=== PATIENT | male | born 1935 | race Caucasian/White ===

== ENCOUNTER → 2018-03-12 08:30 | Outpatient (REF) | payer MEDICARE, SELFPAY ==
[2018-03-12 10:19] LABS: ALB/GLOB Ratio 0.8 RATIO (0.9-2.4); AST(SGOT) 12 U/L (15-37); Alanine Aminotransfer ALT/SGPT 12 U/L (16-61); Alkaline Phosphatase 63 U/L (45-117); Anion Gap 8 (5-15); BUN 29 mg/dL (7-18); BUN/Creat Ratio 13.9 RATIO (10-20); Calcium,Total 8.2 mg/dL (8.5-10.1); Chloride 103 mmol/L (98-107); Creatinine, Serum 2.08 mg/dL (0.70-1.30); EST Glomerular Filtration Rate 33 mL/min (>60); Est Glom Filt Rate - Afr Amer 40 mL/min (>60); Globulin 3.9 g/dL (2.2-4.2); Glucose 89 mg/dL (74-106); Potassium 3.8 mmol/L (3.5-5.1); Protein, Total 6.9 g/dL (6.4-8.2); Sodium Level 142 mmol/L (136-145)
[2018-03-12 10:23] LABS: Absolute Lymphocyte Count 1.26 X10^3/ul (0.83-4.51); Absolute Neutrophil Count 4.5 X10^3/uL (2.0-7.7); Basophil# 0.01 X10^3/uL; Basophil% 0.2 % (0-1); Eosinophil# 0.26 X10^3/uL; Hematocrit 31.1 % (40-54); Hemoglobin 10.2 g/dl (13.0-16.5); Lymphocyte # 1.26 X10^3/ul (4.0); Lymphocyte % 19.4 % (19-41); Mean Corp Hgb Conc 32.8 g/gl (32-36); Mean Corpuscular Hgb 29.5 pg (27.0-32.0); Mean Corpuscular Volume 89.9 fL (80-94); Monocyte# 0.52 X10^3/uL; Neutrophil # 4.46 X10^3/uL (2.7-7.7); Neutrophil % 68.4 % (47-70); Platelet Count 112 K/mm3 (150-450); RBC Distribution Width CV 15.5 % (11.6-14.6); RBC Distribution Width SD 51.1 fl (35.1-43.9); Red Blood Count 3.46 M/mm3 (4.6-6.2); White Blood Count 6.5 K/mm3 (4.4-11.0)
[2018-03-12 10:26] LABS: POSITIVE COUNT NO; POSITIVE DIFFERENTIAL NO; POSITIVE MORPHOLOGY NO
[2018-03-13 10:12] LABS: Vitamin D,25 Hydroxy 40.8 ng/mL (29.95-100.01)
== END ==
LOC: OLS.AVEB 08:30
PROVIDERS: Visit Provider Family Medicine
DX: E78.5 Hyperlipidemia, unspecified (principal); D69.6 Thrombocytopenia, unspecified; N18.4 Chronic kidney disease, stage 4 (severe); E55.9 Vitamin D deficiency, unspecified
CPT/HCPCS: 36415; 80053; 82306; 85025

== ENCOUNTER → 2018-03-13 05:00 | Outpatient (REF) | payer MEDICARE, SELFPAY ==
[2018-03-13 09:12] LABS: Cholesterol 93 mg/dL (200); High Density Lipoprotein 44 mg/dL; Triglycerides 40 mg/dL; Very Low Density Lipoprotein 8 mg/dL (5-40)
== END ==
LOC: OLS.AVEB 05:00
PROVIDERS: Visit Provider Family Medicine
DX: E78.5 Hyperlipidemia, unspecified (principal)
CPT/HCPCS: 36415; 80061

== ENCOUNTER → 2018-03-31 05:00 | Outpatient (REF) | payer MEDICARE, SELFPAY ==
[2018-03-31 09:15] LABS: Anion Gap 10 (5-15); BUN 30 mg/dL (7-18); BUN/Creat Ratio 13.3 RATIO (10-20); Calcium,Total 8.2 mg/dL (8.5-10.1); Chloride 102 mmol/L (98-107); Creatinine, Serum 2.26 mg/dL (0.70-1.30); EST Glomerular Filtration Rate 30 mL/min (>60); Est Glom Filt Rate - Afr Amer 36 mL/min (>60); Glucose 88 mg/dL (74-106); Potassium 4.2 mmol/L (3.5-5.1); Sodium Level 141 mmol/L (136-145)
[2018-03-31 09:17] LABS: Absolute Lymphocyte Count 1.69 X10^3/ul (0.83-4.51); Absolute Neutrophil Count 4.6 X10^3/uL (2.0-7.7); Basophil# 0.02 X10^3/uL; Basophil% 0.3 % (0-1); Eosinophils% 4.2 % (0-5); Hematocrit 31.5 % (40-54); Lymphocyte # 1.69 X10^3/ul (4.0); Lymphocyte % 23.6 % (19-41); Mean Corp Hgb Conc 31.7 g/gl (32-36); Mean Corpuscular Hgb 29.2 pg (27.0-32.0); Mean Corpuscular Volume 91.8 fL (80-94); Mean Platelet Vol. 9.8 fl (6.2-12.0); Monocyte# 0.56 X10^3/uL; Monocyte% 7.8 % (0-10); Neutrophil # 4.59 X10^3/uL (2.7-7.7); POSITIVE COUNT NO; POSITIVE DIFFERENTIAL NO; POSITIVE MORPHOLOGY NO; Platelet Count 133 K/mm3 (150-450); RBC Distribution Width CV 15.3 % (11.6-14.6); RBC Distribution Width SD 51.8 fl (35.1-43.9); Red Blood Count 3.43 M/mm3 (4.6-6.2); White Blood Count 7.2 K/mm3 (4.4-11.0)
== END ==
LOC: OLS.AVEB 05:00
PROVIDERS: Visit Provider Family Medicine
DX: D69.6 Thrombocytopenia, unspecified (principal); N18.9 Chronic kidney disease, unspecified
CPT/HCPCS: 36415; 80048; 85025

== ENCOUNTER → 2018-04-06 04:00 | Outpatient (REF) | payer MEDICARE, SELFPAY ==
[2018-04-06 08:14] LABS: Absolute Lymphocyte Count 1.73 X10^3/ul (0.83-4.51); Absolute Neutrophil Count 4.9 X10^3/uL (2.0-7.7); Basophil# 0.02 X10^3/uL; Basophil% 0.3 % (0-1); Eosinophil# 0.23 X10^3/uL; Eosinophils% 3.1 % (0-5); Hematocrit 31.7 % (40-54); Hemoglobin 10.4 g/dl (13.0-16.5); Lymphocyte # 1.73 X10^3/ul (4.0); Lymphocyte % 22.9 % (19-41); Mean Corp Hgb Conc 32.8 g/gl (32-36); Mean Corpuscular Volume 91.4 fL (80-94); Mean Platelet Vol. 10.3 fl (6.2-12.0); Monocyte# 0.63 X10^3/uL; Monocyte% 8.4 % (0-10); Neutrophil # 4.92 X10^3/uL (2.7-7.7); Neutrophil % 65.2 % (47-70); Platelet Count 146 K/mm3 (150-450); RBC Distribution Width CV 15.2 % (11.6-14.6); RBC Distribution Width SD 49.4 fl (35.1-43.9); Red Blood Count 3.47 M/mm3 (4.6-6.2); White Blood Count 7.5 K/mm3 (4.4-11.0)
[2018-04-06 08:17] LABS: POSITIVE COUNT NO; POSITIVE DIFFERENTIAL NO; POSITIVE MORPHOLOGY NO
[2018-04-06 08:25] LABS: Anion Gap 7 (5-15); BUN 39 mg/dL (7-18); BUN/Creat Ratio 20.3 RATIO (10-20); Calcium,Total 8.3 mg/dL (8.5-10.1); Chloride 102 mmol/L (98-107); Creatinine, Serum 1.92 mg/dL (0.70-1.30); EST Glomerular Filtration Rate 36 mL/min (>60); Est Glom Filt Rate - Afr Amer 43 mL/min (>60); Glucose 87 mg/dL (74-106); Potassium 4.2 mmol/L (3.5-5.1); Sodium Level 138 mmol/L (136-145)
== END ==
LOC: OLS.AVEB 04:00
PROVIDERS: Visit Provider Family Medicine
DX: D64.9 Anemia, unspecified (principal)
CPT/HCPCS: 36415; 80048; 85025

== ENCOUNTER → 2018-04-28 05:00 | Outpatient (REF) | payer MEDICARE, SELFPAY ==
[2018-04-28 09:50] LABS: Absolute Lymphocyte Count 1.45 X10^3/ul (0.83-4.51); Absolute Neutrophil Count 4.4 X10^3/uL (2.0-7.7); Basophil# 0.02 X10^3/uL; Basophil% 0.3 % (0-1); Eosinophil# 0.35 X10^3/uL; Eosinophils% 5.2 % (0-5); Hematocrit 30.6 % (40-54); Hemoglobin 9.9 g/dl (13.0-16.5); Lymphocyte # 1.45 X10^3/ul (4.0); Lymphocyte % 21.5 % (19-41); Mean Corp Hgb Conc 32.4 g/gl (32-36); Mean Corpuscular Hgb 29.2 pg (27.0-32.0); Mean Corpuscular Volume 90.3 fL (80-94); Mean Platelet Vol. 9.8 fl (6.2-12.0); Monocyte# 0.56 X10^3/uL; Monocyte% 8.3 % (0-10); Neutrophil # 4.35 X10^3/uL (2.7-7.7); Neutrophil % 64.4 % (47-70); Platelet Count 117 K/mm3 (150-450); RBC Distribution Width CV 15.4 % (11.6-14.6); RBC Distribution Width SD 50.7 fl (35.1-43.9); Red Blood Count 3.39 M/mm3 (4.6-6.2); White Blood Count 6.8 K/mm3 (4.4-11.0)
[2018-04-28 09:51] LABS: POSITIVE COUNT NO; POSITIVE DIFFERENTIAL NO; POSITIVE MORPHOLOGY NO
[2018-04-28 09:57] LABS: Anion Gap 8 (5-15); BUN 29 mg/dL (7-18); BUN/Creat Ratio 13.6 RATIO (10-20); Calcium,Total 8.2 mg/dL (8.5-10.1); Chloride 100 mmol/L (98-107); Creatinine, Serum 2.13 mg/dL (0.70-1.30); EST Glomerular Filtration Rate 32 mL/min (>60); Est Glom Filt Rate - Afr Amer 39 mL/min (>60); Glucose 80 mg/dL (74-106); Sodium Level 137 mmol/L (136-145)
== END ==
LOC: OLS.AVEB 05:00
PROVIDERS: Visit Provider Family Medicine
DX: N18.4 Chronic kidney disease, stage 4 (severe) (principal); D69.6 Thrombocytopenia, unspecified
CPT/HCPCS: 36415; 80048; 85025

== ENCOUNTER → 2018-05-04 04:00 | Outpatient (REF) | payer MEDICARE, SELFPAY ==
[2018-05-04 09:24] LABS: Absolute Lymphocyte Count 1.47 X10^3/ul (0.83-4.51); Absolute Neutrophil Count 4.7 X10^3/uL (2.0-7.7); Basophil# 0.01 X10^3/uL; Basophil% 0.1 % (0-1); Eosinophil# 0.23 X10^3/uL; Eosinophils% 3.3 % (0-5); Hematocrit 31.4 % (40-54); Lymphocyte # 1.47 X10^3/ul (4.0); Lymphocyte % 21.1 % (19-41); Mean Corp Hgb Conc 31.8 g/gl (32-36); Mean Platelet Vol. 10.1 fl (6.2-12.0); Monocyte# 0.57 X10^3/uL; Monocyte% 8.2 % (0-10); Neutrophil # 4.69 X10^3/uL (2.7-7.7); Neutrophil % 67.2 % (47-70); Platelet Count 125 K/mm3 (150-450); RBC Distribution Width CV 15.3 % (11.6-14.6); RBC Distribution Width SD 50.8 fl (35.1-43.9); Red Blood Count 3.45 M/mm3 (4.6-6.2)
[2018-05-04 09:27] LABS: POSITIVE COUNT NO; POSITIVE DIFFERENTIAL NO; POSITIVE MORPHOLOGY NO
[2018-05-04 09:30] LABS: Anion Gap 4 (5-15); BUN 36 mg/dL (7-18); BUN/Creat Ratio 18.9 RATIO (10-20); Calcium,Total 8.5 mg/dL (8.5-10.1); Chloride 99 mmol/L (98-107); EST Glomerular Filtration Rate 36 mL/min (>60); Est Glom Filt Rate - Afr Amer 44 mL/min (>60); Glucose 86 mg/dL (74-106); Potassium 4.5 mmol/L (3.5-5.1); Sodium Level 136 mmol/L (136-145)
== END ==
LOC: OLS.AVEB 04:00
PROVIDERS: Visit Provider Family Medicine
DX: N18.4 Chronic kidney disease, stage 4 (severe) (principal); D69.6 Thrombocytopenia, unspecified
CPT/HCPCS: 36415; 80048; 85025

== ENCOUNTER → 2018-05-26 06:00 | Outpatient (REF) | payer MEDICARE, SELFPAY ==
[2018-05-26 08:02] LABS: Anion Gap 7 (5-15); BUN 27 mg/dL (7-18); BUN/Creat Ratio 13.5 RATIO (10-20); Calcium,Total 7.9 mg/dL (8.5-10.1); Chloride 101 mmol/L (98-107); EST Glomerular Filtration Rate 34 mL/min (>60); Est Glom Filt Rate - Afr Amer 41 mL/min (>60); Glucose 76 mg/dL (74-106); Potassium 4.2 mmol/L (3.5-5.1); Sodium Level 137 mmol/L (136-145)
[2018-05-26 08:06] LABS: Absolute Lymphocyte Count 1.69 X10^3/ul (0.83-4.51); Absolute Neutrophil Count 5.2 X10^3/uL (2.0-7.7); Basophil# 0.02 X10^3/uL; Basophil% 0.3 % (0-1); Eosinophil# 0.29 X10^3/uL; Eosinophils% 3.8 % (0-5); Hematocrit 33.2 % (40-54); Hemoglobin 10.7 g/dl (13.0-16.5); Lymphocyte # 1.69 X10^3/ul (4.0); Lymphocyte % 21.9 % (19-41); Mean Corp Hgb Conc 32.2 g/gl (32-36); Mean Corpuscular Hgb 29.4 pg (27.0-32.0); Mean Corpuscular Volume 91.2 fL (80-94); Mean Platelet Vol. 9.5 fl (6.2-12.0); Monocyte% 6.5 % (0-10); Neutrophil # 5.19 X10^3/uL (2.7-7.7); Neutrophil % 67.4 % (47-70); Platelet Count 117 K/mm3 (150-450); RBC Distribution Width CV 15.1 % (11.6-14.6); RBC Distribution Width SD 50.7 fl (35.1-43.9); Red Blood Count 3.64 M/mm3 (4.6-6.2); White Blood Count 7.7 K/mm3 (4.4-11.0)
[2018-05-26 08:12] LABS: POSITIVE COUNT NO; POSITIVE DIFFERENTIAL NO; POSITIVE MORPHOLOGY NO
== END ==
LOC: OLS.AVEB 06:00
PROVIDERS: Visit Provider Family Medicine
DX: I10 Essential (primary) hypertension (principal); R53.83 Other fatigue
CPT/HCPCS: 36415; 80048; 85025

== ENCOUNTER → 2018-06-01 05:00 | Outpatient (REF) | payer MEDICARE, SELFPAY ==
[2018-06-01 07:57] LABS: Absolute Lymphocyte Count 1.37 X10^3/ul (0.83-4.51); Absolute Neutrophil Count 4.5 X10^3/uL (2.0-7.7); Basophil# 0.02 X10^3/uL; Basophil% 0.3 % (0-1); Eosinophil# 0.26 X10^3/uL; Eosinophils% 3.9 % (0-5); Hematocrit 31.5 % (40-54); Hemoglobin 10.2 g/dl (13.0-16.5); Lymphocyte # 1.37 X10^3/ul (4.0); Lymphocyte % 20.5 % (19-41); Mean Corp Hgb Conc 32.4 g/gl (32-36); Mean Corpuscular Hgb 30.1 pg (27.0-32.0); Mean Corpuscular Volume 92.9 fL (80-94); Mean Platelet Vol. 10.4 fl (6.2-12.0); Monocyte# 0.54 X10^3/uL; Monocyte% 8.1 % (0-10); Neutrophil # 4.47 X10^3/uL (2.7-7.7); Neutrophil % 66.9 % (47-70); Platelet Count 126 K/mm3 (150-450); RBC Distribution Width CV 14.9 % (11.6-14.6); RBC Distribution Width SD 48.8 fl (35.1-43.9); Red Blood Count 3.39 M/mm3 (4.6-6.2); White Blood Count 6.7 K/mm3 (4.4-11.0)
[2018-06-01 07:58] LABS: Anion Gap 8 (5-15); BUN 29 mg/dL (7-18); BUN/Creat Ratio 14.3 RATIO (10-20); Calcium,Total 8.1 mg/dL (8.5-10.1); Chloride 101 mmol/L (98-107); Creatinine, Serum 2.03 mg/dL (0.70-1.30); EST Glomerular Filtration Rate 34 mL/min (>60); Est Glom Filt Rate - Afr Amer 41 mL/min (>60); Glucose 86 mg/dL (74-106); Potassium 4.1 mmol/L (3.5-5.1); Sodium Level 138 mmol/L (136-145)
[2018-06-01 08:08] LABS: POSITIVE COUNT NO; POSITIVE DIFFERENTIAL NO; POSITIVE MORPHOLOGY NO
== END ==
LOC: OLS.AVEB 05:00
PROVIDERS: Visit Provider Family Medicine
DX: D64.9 Anemia, unspecified (principal)
CPT/HCPCS: 36415; 80048; 85025

== ENCOUNTER → 2018-06-23 05:00 | Outpatient (REF) | payer MEDICARE, MEDICAID, SELFPAY ==
[2018-06-23 08:01] LABS: Absolute Lymphocyte Count 1.46 X10^3/ul (0.83-4.51); Absolute Neutrophil Count 5.1 X10^3/uL (2.0-7.7); Basophil# 0.01 X10^3/uL; Basophil% 0.1 % (0-1); Eosinophil# 0.23 X10^3/uL; Eosinophils% 3.1 % (0-5); Hematocrit 32.8 % (40-54); Hemoglobin 10.7 g/dl (13.0-16.5); Lymphocyte # 1.46 X10^3/ul (4.0); Lymphocyte % 19.7 % (19-41); Mean Corp Hgb Conc 32.6 g/gl (32-36); Mean Corpuscular Hgb 29.5 pg (27.0-32.0); Mean Corpuscular Volume 90.4 fL (80-94); Mean Platelet Vol. 9.7 fl (6.2-12.0); Monocyte# 0.58 X10^3/uL; Monocyte% 7.8 % (0-10); Neutrophil # 5.11 X10^3/uL (2.7-7.7); Platelet Count 127 K/mm3 (150-450); RBC Distribution Width CV 15.2 % (11.6-14.6); RBC Distribution Width SD 50.1 fl (35.1-43.9); Red Blood Count 3.63 M/mm3 (4.6-6.2); White Blood Count 7.4 K/mm3 (4.4-11.0)
[2018-06-23 08:02] LABS: POSITIVE COUNT NO; POSITIVE DIFFERENTIAL NO; POSITIVE MORPHOLOGY NO
[2018-06-23 08:10] LABS: Anion Gap 10 (5-15); BUN 25 mg/dL (7-18); BUN/Creat Ratio 12.8 RATIO (10-20); Calcium,Total 8.1 mg/dL (8.5-10.1); Chloride 101 mmol/L (98-107); Creatinine, Serum 1.95 mg/dL (0.70-1.30); EST Glomerular Filtration Rate 35 mL/min (>60); Est Glom Filt Rate - Afr Amer 43 mL/min (>60); Glucose 82 mg/dL (74-106); Potassium 3.8 mmol/L (3.5-5.1); Sodium Level 140 mmol/L (136-145)
== END ==
LOC: OLS.AVEB 05:00
PROVIDERS: Visit Provider Family Medicine
DX: S32.039A Unspecified fracture of third lumbar vertebra, initial encounter for closed fracture (principal); X58.XXXA Exposure to other specified factors, initial encounter; Y93.9 Activity, unspecified; Y92.9 Unspecified place or not applicable
CPT/HCPCS: 36415; 80048; 85025

== ENCOUNTER → 2018-06-26 05:00 | Outpatient (REF) | payer MEDICARE, MEDICAID, SELFPAY ==
[2018-06-26 08:33] LABS: Anion Gap 8 (5-15); BUN 26 mg/dL (7-18); Calcium,Total 8.1 mg/dL (8.5-10.1); Chloride 101 mmol/L (98-107); Creatinine, Serum 2.37 mg/dL (0.70-1.30); EST Glomerular Filtration Rate 28 mL/min (>60); Est Glom Filt Rate - Afr Amer 34 mL/min (>60); Glucose 84 mg/dL (74-106); Potassium 4.4 mmol/L (3.5-5.1); Sodium Level 139 mmol/L (136-145)
[2018-06-26 08:50] LABS: Absolute Lymphocyte Count 1.18 X10^3/ul (0.83-4.51); Basophil# 0.01 X10^3/uL; Basophil% 0.1 % (0-1); Eosinophils% 2.9 % (0-5); Hematocrit 33.6 % (40-54); Hemoglobin 10.7 g/dl (13.0-16.5); Lymphocyte # 1.18 X10^3/ul (4.0); Mean Corp Hgb Conc 31.8 g/gl (32-36); Mean Corpuscular Volume 91.1 fL (80-94); Monocyte# 0.55 X10^3/uL; Monocyte% 7.9 % (0-10); Platelet Count 132 K/mm3 (150-450); RBC Distribution Width CV 15.1 % (11.6-14.6); RBC Distribution Width SD 50.8 fl (35.1-43.9); Red Blood Count 3.69 M/mm3 (4.6-6.2)
[2018-06-26 08:51] LABS: POSITIVE COUNT NO; POSITIVE DIFFERENTIAL NO; POSITIVE MORPHOLOGY NO
== END ==
LOC: OLS.AVEB 05:00
PROVIDERS: Visit Provider Family Medicine
DX: N18.4 Chronic kidney disease, stage 4 (severe) (principal); D69.6 Thrombocytopenia, unspecified
CPT/HCPCS: 36415; 80048; 85025

== ENCOUNTER → 2018-07-07 13:10 | Outpatient (REF) | payer MEDICARE, MEDICAID, SELFPAY ==
[2018-07-07 14:57] LABS: Bacteria 0 SEEN /hpf (None Seen); Mucous, Urine 0 SEEN /hpf (<or=2+); Red Blood Cells-Urine 0 SEEN /hpf (0-5); Squamous Epithelial Cells - UA 0 SEEN /hpf (0-5); White Blood Cells 0 SEEN /hpf (0-5)
[2018-07-07 15:08] LABS: Color, Urine Yellow (Yellow); Glucose, Dipstick Normal (Normal); Ketone-Dipstick Negative (Negative); Leukocyte Esterase-Dipstick Negative /ul (Negative); Nitrite-Dipstick Negative (Negative); Occult Blood-Urine Negative /ul (Negative); Protein-Dipstick 30 mg/dl (Negative); Urine Bilirubin Dipstick Negative (Negative); Urine Clarity Clear (Clear); Urine Urobilinogen Normal (Normal)
--- OUTSIDE RECORDS SUMMARY | 2018-09-02 07:04 | XMS RPT_ITS ---
:1935 Author Organization OHIP Support Name Relationship Address Phone María Cortez Unavailable [address] + [place] [address] R Unavailable Unavailable Unavailable Bone, María Unavailable [address] + [place] [address] R Unavailable Unavailable Unavailable Bone, María Unavailable [address] + [place] [address] R Unavailable Unavailable Unavailable Bone, María Unavailable [address] + [place] [address] R Unavailable Unavailable Unavailable Bone, María Unavailable [address] + [place] [address] R Unavailable Unavailable Unavailable Bone, María Unavailable [address] + [place] [address] R Unavailable Unavailable Unavailable Bone, María Unavailable [address] + [place] [address] R Unavailable Unavailable Unavailable Bone, María Unavailable [address] + [place] [address] R Unavailable Unavailable Unavailable Bone, María Unavailable [address] + [place] [address] R Unavailable Unavailable Unavailable Bone, María Unavailable [address] + [place] [address] R Unavailable Unavailable Unavailable Bone, María Unavailable [address] + [place] [address] R Unavailable Unavailable Unavailable Bone, María Unavailable [address] + [place] [address] R Unavailable Unavailable Unavailable Bone, María Unavailable [address] + [place] [address] R Unavailable Unavailable Unavailable Care Team Providers Name Role Phone Kelledana, Catalina Attending Unavailable Ciesa, Catalina Referring Unavailable Kelleeskymberly, Catalina Consulting Unavailable Black, Davi Attending Unavailable Black, Davi Attending Unavailable Black, Daiv Attending Unavailable Black, Davi Attending Unavailable Black, Davi Attending Unavailable Black, Davi Attending Unavailable Black, Davi Attending Unavailable Black, Davi Attending Unavailable Black, Davi Attending Unavailable Black, Davi Attending Unavailable Black, Davi Attending Unavailable Black, Davi Attending Unavailable Black, Davi Attending Unavailable PROBLEMS PROBLEMS DATE TYPE CONDITION / CODE ATTENDING STATUS SOURCE 07/15/2018 Unknown 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, Community stage 4 (severe) / Hospital N18.4(ICD-10) Repository 07/15/2018 Unknown D69.6 - [facility] estes Active [facility] Thrombocytopenia, Community unspecified / Hospital D69.6(ICD-10) Repository 07/10/2018 Unknown S32.038A - Other [facility] estes Active [facility] fracture of third Community lumbar vertebra, Hospital initial encounter Repository for closed fracture / S32.038A(ICD-10) 06/23/2018 Unknown D64.9 - Anemia, [facility] estes Active [facility] unspecified / Community D64.9(ICD-10) Hospital Repository 06/19/2018 Unknown R53.83 - Other [facility] estes Active [facility] fatigue / Community R53.83(ICD-10) Hospital Repository 06/19/2018 Unknown I10 - Essential [facility] estes Active [facility] (primary) Community hypertension / Hospital I10(ICD-10) Repository 05/08/2018 Unknown E78.5 - [facility]i estes Active [facility] Hyperlipidemia, Community unspecified / Hospital E78.5(ICD-10) Repository PROCEDURES PROCEDURES No Procedure Records FoundRESULTS RESULTS CBC W/DIFF, AUTOMATED Collected: 07/27/2018 Status: F Source: JERRY 8:30 AM [facility] REPOSITORY TYPE CODE TESTS RESULT OUT OF RANGE REFERENCE UNITS LAB L100.1000 4.4-11.0 K/mm3 Normal WBC 6.0 LAB L100.1200 4.6-6.2 M/mm3 Low RBC 3.55 LAB L100.1300 13.0-16.5 g/dl Low HGB 10.3 LAB L100.1400 40-54 % Low HCT 31.8 LAB L100.1500 80-94 fL Normal MCV 89.6 LAB L100.1600 27.0-32.0 pg Normal MCH 29.0 LAB L100.1700 32-36 g/gl Normal MCHC 32.4 LAB L100.1810 11.6-14.6 % High RDW CV 15.1 LAB L100.1820 35.1-43.9 fl High RDW SD 49.5 LAB L100.1900 150-450 K/mm3 Low PLT 118 LAB L100.2000 6.2-12.0 fl Normal MPV 9.9 LAB L100.2100 47-70 % Normal NEUT% 64.2 LAB L100.2200 19-41 % Normal LY% 22.9 LAB L100.2300 0-10 % Normal MONO% 8.3 LAB L100.2400 0-5 % Normal EO% 4.2 LAB L100.2500 0-1 % Normal BASO% 0.2 LAB L100.2550 0.0-0.9 % Normal IM GRAN % 0.200 Result Comment: IG% - Immature Granulocytes (promyelocytes, myelocytes and metamyelocytes) > 1% indicates that a LEFT SHIFT is Present. LAB L100.2620 2.0-7.7 X10 3/uL Normal Absolute Neut 3.9 LAB L100.2720 0.83-4.51 X10 3/ul Normal Absolute Lymph 1.38 Performed By: #### L100.0100 #### [facility]. [place], [place], [address] RENAL PROFILE Collected: 07/27/2018 Status: F Source: QUINTER 8:30 AM [facility] REPOSITORY TYPE CODE TESTS RESULT OUT OF RANGE REFERENCE UNITS LAB L501.0100 74-106 mg/dL Normal GLU 78 Result Comment: Please note revised GLUCOSE reference range effective 2017. LAB L501.1000 7-18 mg/dL High BUN 28 LAB L501.1100 0.70-1.30 mg/dL High CREAT,SERUM 1.82 Result Comment: The validity of the calculated GFR AND GFRAA in patients over 70 years has not been determined. Clinical correlation is essential. LAB L501.1110 >60 mL/min Low EST GFR 38 Result Comment: Non- GFR Calc LAB L501.1115 >60 mL/min Low EST GFR - AA 46 Result Comment: GFR Calc LAB L501.1300 10-20 RATIO Normal BUN/CRE 15.4 LAB L501.1800 3.2-5.0 g/dL Low ALB 3.0 LAB L501.2200 8.5-10.1 mg/dL Low CA 8.0 LAB L501.2300 2.5-4.9 mg/dL Normal PHOS 2.9 LAB L501.5300 136-145 mmol/L NA Normal 137 LAB L501.5600 3.5-5.1 mmol/L K Normal 4.0 LAB L501.5900 98-107 mmol/L CL Normal 101 LAB L501.6100 21.0-32.0 mmol/L Normal CO2 29.0 Performed By: #### L500.3600 #### [facility] [address] [place], [address] PTHIN Collected: 07/27/2018 Status: F Source: QUINTER 8:30 AM [facility] REPOSITORY TYPE CODE TESTS RESULT OUT OF RANGE REFERENCE UNITS LAB L509.1000 18.4-80.1 pg/mL Normal PTHIN 48.3 Performed By: #### L509.1000 #### [facility] [address] [place], [address] CBC W/DIFF, AUTOMATED Collected: 07/21/2018 Status: F Source: QUINTER 6:30 AM [facility] REPOSITORY Order Comment: 102 TYPE CODE TESTS RESULT OUT OF RANGE REFERENCE UNITS LAB L100.1000 4.4-11.0 K/mm3 Normal WBC 6.4 LAB L100.1200 4.6-6.2 M/mm3 Low RBC 3.35 LAB L100.1300 13.0-16.5 g/dl Low HGB 9.9 LAB L100.1400 40-54 % Low HCT 30.6 LAB L100.1500 80-94 fL Normal MCV 91.3 LAB L100.1600 27.0-32.0 pg Normal MCH 29.6 LAB L100.1700 32-36 g/gl Normal MCHC 32.4 LAB L100.1810 11.6-14.6 % High RDW CV 14.9 LAB L100.1820 35.1-43.9 fl High RDW SD 48.5 LAB L100.1900 150-450 K/mm3 Normal PLT 154 LAB L100.2000 6.2-12.0 fl Normal MPV 10.4 LAB L100.2100 47-70 % Normal NEUT% 62.0 LAB L100.2200 19-41 % Normal LY% 23.3 LAB L100.2300 0-10 % Normal MONO% 9.8 LAB L100.2400 0-5 % Normal EO% 4.5 LAB L100.2500 0-1 % Normal BASO% 0.2 LAB L100.2550 0.0-0.9 % Normal IM GRAN % 0.200 Result Comment: IG% - Immature Granulocytes (promyelocytes, myelocytes and metamyelocytes) > 1% indicates that a LEFT SHIFT is Present. LAB L100.2620 2.0-7.7 X10 3/uL Normal Absolute Neut 4.0 LAB L100.2720 0.83-4.51 X10 3/ul Normal Absolute Lymph 1.50 Performed By: #### L100.0100 #### [facility] [address] [place], [address] BASIC METABOLIC Collected: 07/21/2018 Status: F Source: QUINTER PROFILE ([facility]) 6:30 AM [facility] REPOSITORY Order Comment: 102 TYPE CODE TESTS RESULT OUT OF RANGE REFERENCE UNITS LAB L501.0100 74-106 mg/dL Low GLU 73 Result Comment: Please note revised GLUCOSE reference range effective 2017. LAB L501.1000 7-18 mg/dL High BUN 27 LAB L501.1100 0.70-1.30 mg/dL High CREAT,SERUM 1.90 Result Comment: The validity of the calculated GFR AND GFRAA in patients over 70 years has not been determined. Clinical correlation is essential. LAB L501.1110 >60 mL/min Low EST GFR 36 Result Comment: Non- GFR Calc LAB L501.1115 >60 mL/min Low EST GFR - AA 44 Result Comment: GFR Calc LAB L501.1300 10-20 RATIO Normal BUN/CRE 14.2 LAB L501.2200 8.5-10.1 mg/dL Low CA 7.8 LAB L501.5300 136-145 mmol/L NA Normal 137 LAB L501.5600 3.5-5.1 mmol/L K Normal 3.9 LAB L501.5900 98-107 mmol/L CL Normal 100 LAB L501.6100 21.0-32.0 mmol/L Normal CO2 32.0 LAB L501.6200 5-15 Normal GAP 5 Performed By: #### L500.2500 #### [facility] [address] [place], [place], [address] URINALYSIS, COMPLETE Collected: 07/07/2018 Status: F Source: JERRY 1:10 PM [facility] REPOSITORY Order Comment: How was Urine Obtained? CLEAN CATCH TYPE CODE TESTS RESULT OUT OF RANGE REFERENCE UNITS LAB L400.3000 Yellow COLOR Normal Yellow LAB L400.3050 Clear Normal CLARITY Clear LAB L400.3200 Normal mg/dl Normal GLUCOSE, UR Normal LAB L400.3300 Negative mg/dL Normal BILIRUBIN URINE Negative LAB L400.3400 Negative mg/dl Normal KETONE UR Negative LAB L400.3465 1.002-1.030 Normal SP.GR. DIPSTX 1.010 LAB L400.3550 5.0 - 8.0 pH UR Normal 6.0 LAB L400.3600 Negative mg/dl High PROT 30 DIPSTX LAB L400.3700 Normal mg/dl Normal UROBILI Normal LAB L400.3750 Negative Normal NITRITE UR Negative LAB L400.3780 Negative /ul Normal OCCULT BLOOD-UR Negative LAB L400.3800 Negative /ul LEUK Normal ESTERASE Negative LAB L400.4050 0-5 /hpf WBC 0 Normal SEEN LAB L400.4100 0-5 /hpf 0 Normal RBC-UA SEEN LAB L400.4150 0-5 /hpf SQUAM 0 Normal EPI SEEN LAB L400.4300 None Seen /hpf 0 Normal BACTERIA SEEN LAB L400.4350 <or=2+ /hpf 0 Normal MUCUS, URINE SEEN Performed By: #### L400.0001 #### [facility] [address] [place], [place], [address] BASIC METABOLIC Collected: 06/26/2018 Status: F Source: JERRY PROFILE (BMP) 6:05 AM [facility] REPOSITORY Order Comment: 102 TYPE CODE TESTS RESULT OUT OF RANGE REFERENCE UNITS LAB L501.0100 74-106 mg/dL Normal GLU 84 Result Comment: Please note revised GLUCOSE reference range effective 2017. LAB L501.1000 7-18 mg/dL High BUN 26 LAB L501.1100 0.70-1.30 mg/dL High CREAT,SERUM 2.37 Result Comment: The validity of the calculated GFR AND GFRAA in patients over 70 years has not been determined. Clinical correlation is essential. LAB L501.1110 >60 mL/min Low EST GFR 28 Result Comment: Non- GFR Calc LAB L501.1115 >60 mL/min Low EST GFR - AA 34 Result Comment: GFR Calc LAB L501.1300 10-20 RATIO Normal BUN/CRE 11.0 LAB L501.2200 8.5-10.1 mg/dL Low CA 8.1 LAB L501.5300 136-145 mmol/L NA Normal 139 LAB L501.5600 3.5-5.1 mmol/L K Normal 4.4 LAB L501.5900 98-107 mmol/L CL Normal 101 LAB L501.6100 21.0-32.0 mmol/L Normal CO2 30.0 LAB L501.6200 5-15 Normal GAP 8 Performed By: #### L500.2500 #### [facility] [address] [place], [place], [address] CBC W/DIFF, AUTOMATED Collected: 06/26/2018 Status: F Source: QUINTER 6:05 AM [facility] REPOSITORY Order Comment: 102 TYPE CODE TESTS RESULT OUT OF RANGE REFERENCE UNITS LAB L100.1000 4.4-11.0 K/mm3 Normal WBC 7.0 LAB L100.1200 4.6-6.2 M/mm3 Low RBC 3.69 LAB L100.1300 13.0-16.5 g/dl Low HGB 10.7 LAB L100.1400 40-54 % Low HCT 33.6 LAB L100.1500 80-94 fL Normal MCV 91.1 LAB L100.1600 27.0-32.0 pg Normal MCH 29.0 LAB L100.1700 32-36 g/gl Low MCHC 31.8 LAB L100.1810 11.6-14.6 % High RDW CV 15.1 LAB L100.1820 35.1-43.9 fl High RDW SD 50.8 LAB L100.1900 150-450 K/mm3 Low PLT 132 LAB L100.2000 6.2-12.0 fl Normal MPV 10.0 LAB L100.2100 47-70 % High NEUT% 72.0 LAB L100.2200 19-41 % Low LY% 17.0 LAB L100.2300 0-10 % Normal MONO% 7.9 LAB L100.2400 0-5 % Normal EO% 2.9 LAB L100.2500 0-1 % Normal BASO% 0.1 LAB L100.2550 0.0-0.9 % Normal IM GRAN % 0.100 Result Comment: IG% - Immature Granulocytes (promyelocytes, myelocytes and metamyelocytes) > 1% indicates that a LEFT SHIFT is Present. LAB L100.2620 2.0-7.7 X10 3/uL Normal Absolute Neut 5.0 LAB L100.2720 0.83-4.51 X10 3/ul Normal Absolute Lymph 1.18 Performed By: #### L100.0100 #### [facility] [address] [place], [address] CBC W/DIFF, AUTOMATED Collected: 06/23/2018 Status: F Source: QUINTER 6:00 AM [facility] REPOSITORY Order Comment: 102 TYPE CODE TESTS RESULT OUT OF RANGE REFERENCE UNITS LAB L100.1000 4.4-11.0 K/mm3 Normal WBC 7.4 LAB L100.1200 4.6-6.2 M/mm3 Low RBC 3.63 LAB L100.1300 13.0-16.5 g/dl Low HGB 10.7 LAB L100.1400 40-54 % Low HCT 32.8 LAB L100.1500 80-94 fL Normal MCV 90.4 LAB L100.1600 27.0-32.0 pg Normal MCH 29.5 LAB L100.1700 32-36 g/gl Normal MCHC 32.6 LAB L100.1810 11.6-14.6 % High RDW CV 15.2 LAB L100.1820 35.1-43.9 fl High RDW SD 50.1 LAB L100.1900 150-450 K/mm3 Low PLT 127 LAB L100.2000 6.2-12.0 fl Normal MPV 9.7 LAB L100.2100 47-70 % Normal NEUT% 69.0 LAB L100.2200 19-41 % Normal LY% 19.7 LAB L100.2300 0-10 % Normal MONO% 7.8 LAB L100.2400 0-5 % Normal EO% 3.1 LAB L100.2500 0-1 % Normal BASO% 0.1 LAB L100.2550 0.0-0.9 % Normal IM GRAN % 0.300 Result Comment: IG% - Immature Granulocytes (promyelocytes, myelocytes and metamyelocytes) > 1% indicates that a LEFT SHIFT is Present. LAB L100.2620 2.0-7.7 X10 3/uL Normal Absolute Neut 5.1 LAB L100.2720 0.83-4.51 X10 3/ul Normal Absolute Lymph 1.46 Performed By: #### L100.0100 #### [facility] [address] [place], [address] BASIC METABOLIC Collected: 06/23/2018 Status: F Source: QUINTER PROFILE (BMP) 6:00 AM [facility] REPOSITORY Order Comment: 102 TYPE CODE TESTS RESULT OUT OF RANGE REFERENCE UNITS LAB L501.0100 74-106 mg/dL Normal GLU 82 Result Comment: Please note revised GLUCOSE reference range effective 2017. LAB L501.1000 7-18 mg/dL High BUN 25 LAB L501.1100 0.70-1.30 mg/dL High CREAT,SERUM 1.95 Result Comment: The validity of the calculated GFR AND GFRAA in patients over 70 years has not been determined. Clinical correlation is essential. LAB L501.1110 >60 mL/min Low EST GFR 35 Result Comment: Non- GFR Calc LAB L501.1115 >60 mL/min Low EST GFR - AA 43 Result Comment: GFR Calc LAB L501.1300 10-20 RATIO Normal BUN/CRE 12.8 LAB L501.2200 8.5-10.1 mg/dL Low CA 8.1 LAB L501.5300 136-145 mmol/L NA Normal 140 LAB L501.5600 3.5-5.1 mmol/L K Normal 3.8 LAB L501.5900 98-107 mmol/L CL Normal 101 LAB L501.6100 21.0-32.0 mmol/L Normal CO2 29.0 LAB L501.6200 5-15 Normal GAP 10 Performed By: #### L500.2500 #### [facility] [address] [place], [place], [address] BASIC METABOLIC Collected: 06/01/2018 Status: F Source: JERRY PROFILE (BMP) 5:00 AM [facility] REPOSITORY Order Comment: RM 102 TYPE CODE TESTS RESULT OUT OF RANGE REFERENCE UNITS LAB L501.0100 74-106 mg/dL Normal GLU 86 Result Comment: Please note revised GLUCOSE reference range effective 2017. LAB L501.1000 7-18 mg/dL High BUN 29 LAB L501.1100 0.70-1.30 mg/dL High CREAT,SERUM 2.03 Result Comment: The validity of the calculated GFR AND GFRAA in patients over 70 years has not been determined. Clinical correlation is essential. LAB L501.1110 >60 mL/min Low EST GFR 34 Result Comment: Non- GFR Calc LAB L501.1115 >60 mL/min Low EST GFR - AA 41 Result Comment: GFR Calc LAB L501.1300 10-20 RATIO Normal BUN/CRE 14.3 LAB L501.2200 8.5-10.1 mg/dL Low CA 8.1 LAB L501.5300 136-145 mmol/L NA Normal 138 LAB L501.5600 3.5-5.1 mmol/L K Normal 4.1 LAB L501.5900 98-107 mmol/L CL Normal 101 LAB L501.6100 21.0-32.0 mmol/L Normal CO2 29.0 LAB L501.6200 5-15 Normal GAP 8 Performed By: #### L500.2500 #### [facility] [address] [place], [place], [address] CBC W/DIFF, AUTOMATED Collected: 06/01/2018 Status: F Source: JERRY 5:00 AM [facility] REPOSITORY Order Comment: RM 102 TYPE CODE TESTS RESULT OUT OF RANGE REFERENCE UNITS LAB L100.1000 4.4-11.0 K/mm3 Normal WBC 6.7 LAB L100.1200 4.6-6.2 M/mm3 Low RBC 3.39 LAB L100.1300 13.0-16.5 g/dl Low HGB 10.2 LAB L100.1400 40-54 % Low HCT 31.5 LAB L100.1500 80-94 fL Normal MCV 92.9 LAB L100.1600 27.0-32.0 pg Normal MCH 30.1 LAB L100.1700 32-36 g/gl Normal MCHC 32.4 LAB L100.1810 11.6-14.6 % High RDW CV 14.9 LAB L100.1820 35.1-43.9 fl High RDW SD 48.8 LAB L100.1900 150-450 K/mm3 Low PLT 126 LAB L100.2000 6.2-12.0 fl Normal MPV 10.4 LAB L100.2100 47-70 % Normal NEUT% 66.9 LAB L100.2200 19-41 % Normal LY% 20.5 LAB L100.2300 0-10 % Normal MONO% 8.1 LAB L100.2400 0-5 % Normal EO% 3.9 LAB L100.2500 0-1 % Normal BASO% 0.3 LAB L100.2550 0.0-0.9 % Normal IM GRAN % 0.300 Result Comment: IG% - Immature Granulocytes (promyelocytes, myelocytes and metamyelocytes) > 1% indicates that a LEFT SHIFT is Present. LAB L100.2620 2.0-7.7 X10 3/uL Normal Absolute Neut 4.5 LAB L100.2720 0.83-4.51 X10 3/ul Normal Absolute Lymph 1.37 Performed By: #### L100.0100 #### [facility] [address] [facility]. [place], [place], [address] BASIC METABOLIC Collected: 05/26/2018 Status: F Source: QUINTER PROFILE ([facility]) 6:00 AM [facility] REPOSITORY TYPE CODE TESTS RESULT OUT OF RANGE REFERENCE UNITS LAB L501.0100 74-106 mg/dL Normal GLU 76 Result Comment: Please note revised GLUCOSE reference range effective 2017. LAB L501.1000 7-18 mg/dL High BUN 27 LAB L501.1100 0.70-1.30 mg/dL High CREAT,SERUM 2.00 Result Comment: The validity of the calculated GFR AND GFRAA in patients over 70 years has not been determined. Clinical correlation is essential. LAB L501.1110 >60 mL/min Low EST GFR 34 Result Comment: Non- GFR Calc LAB L501.1115 >60 mL/min Low EST GFR - AA 41 Result Comment: GFR Calc LAB L501.1300 10-20 RATIO Normal BUN/CRE 13.5 LAB L501.2200 8.5-10.1 mg/dL Low CA 7.9 LAB L501.5300 136-145 mmol/L NA Normal 137 LAB L501.5600 3.5-5.1 mmol/L K Normal 4.2 LAB L501.5900 98-107 mmol/L CL Normal 101 LAB L501.6100 21.0-32.0 mmol/L Normal CO2 29.0 LAB L501.6200 5-15 Normal GAP 7 Performed By: #### L500.2500 #### [facility] [address] [place], [address] CBC W/DIFF, AUTOMATED Collected: 05/26/2018 Status: F Source: QUINTER 6:00 AM [facility] REPOSITORY TYPE CODE TESTS RESULT OUT OF RANGE REFERENCE UNITS LAB L100.1000 4.4-11.0 K/mm3 Normal WBC 7.7 LAB L100.1200 4.6-6.2 M/mm3 Low RBC 3.64 LAB L100.1300 13.0-16.5 g/dl Low HGB 10.7 LAB L100.1400 40-54 % Low HCT 33.2 LAB L100.1500 80-94 fL Normal MCV 91.2 LAB L100.1600 27.0-32.0 pg Normal MCH 29.4 LAB L100.1700 32-36 g/gl Normal MCHC 32.2 LAB L100.1810 11.6-14.6 % High RDW CV 15.1 LAB L100.1820 35.1-43.9 fl High RDW SD 50.7 LAB L100.1900 150-450 K/mm3 Low PLT 117 LAB L100.2000 6.2-12.0 fl Normal MPV 9.5 LAB L100.2100 47-70 % Normal NEUT% 67.4 LAB L100.2200 19-41 % Normal LY% 21.9 LAB L100.2300 0-10 % Normal MONO% 6.5 LAB L100.2400 0-5 % Normal EO% 3.8 LAB L100.2500 0-1 % Normal BASO% 0.3 LAB L100.2550 0.0-0.9 % Normal IM GRAN % 0.100 Result Comment: IG% - Immature Granulocytes (promyelocytes, myelocytes and metamyelocytes) > 1% indicates that a LEFT SHIFT is Present. LAB L100.2620 2.0-7.7 X10 3/uL Normal Absolute Neut 5.2 LAB L100.2720 0.83-4.51 X10 3/ul Normal Absolute Lymph 1.69 Performed By: #### L100.0100 #### [facility] [address] [place], [address] CBC W/DIFF, AUTOMATED Collected: 05/04/2018 Status: F Source: QUINTER 5:00 AM [facility] REPOSITORY Order Comment: ROOM 102 TYPE CODE TESTS RESULT OUT OF RANGE REFERENCE UNITS LAB L100.1000 4.4-11.0 K/mm3 Normal WBC 7.0 LAB L100.1200 4.6-6.2 M/mm3 Low RBC 3.45 LAB L100.1300 13.0-16.5 g/dl Low HGB 10.0 LAB L100.1400 40-54 % Low HCT 31.4 LAB L100.1500 80-94 fL Normal MCV 91.0 LAB L100.1600 27.0-32.0 pg Normal MCH 29.0 LAB L100.1700 32-36 g/gl Low MCHC 31.8 LAB L100.1810 11.6-14.6 % High RDW CV 15.3 LAB L100.1820 35.1-43.9 fl High RDW SD 50.8 LAB L100.1900 150-450 K/mm3 Low PLT 125 LAB L100.2000 6.2-12.0 fl Normal MPV 10.1 LAB L100.2100 47-70 % Normal NEUT% 67.2 LAB L100.2200 19-41 % Normal LY% 21.1 LAB L100.2300 0-10 % Normal MONO% 8.2 LAB L100.2400 0-5 % Normal EO% 3.3 LAB L100.2500 0-1 % Normal BASO% 0.1 LAB L100.2550 0.0-0.9 % Normal IM GRAN % 0.100 Result Comment: IG% - Immature Granulocytes (promyelocytes, myelocytes and metamyelocytes) > 1% indicates that a LEFT SHIFT is Present. LAB L100.2620 2.0-7.7 X10 3/uL Normal Absolute Neut 4.7 LAB L100.2720 0.83-4.51 X10 3/ul Normal Absolute Lymph 1.47 Performed By: #### L100.0100 #### [facility] [address] [place], [place], [id number] BASIC METABOLIC Collected: 05/04/2018 Status: F Source: JERRY PROFILE (BMP) 5:00 AM [facility] REPOSITORY Order Comment: ROOM 102 TYPE CODE TESTS RESULT OUT OF RANGE REFERENCE UNITS LAB L501.0100 74-106 mg/dL Normal GLU 86 Result Comment: Please note revised GLUCOSE reference range effective 2017. LAB L501.1000 7-18 mg/dL High BUN 36 LAB L501.1100 0.70-1.30 mg/dL High CREAT,SERUM 1.90 Result Comment: The validity of the calculated GFR AND GFRAA in patients over 70 years has not been determined. Clinical correlation is essential. LAB L501.1110 >60 mL/min Low EST GFR 36 Result Comment: Non- GFR Calc LAB L501.1115 >60 mL/min Low EST GFR - AA 44 Result Comment: GFR Calc LAB L501.1300 10-20 RATIO Normal BUN/CRE 18.9 LAB L501.2200 8.5-10.1 mg/dL CA Normal 8.5 LAB L501.5300 136-145 mmol/L NA Normal 136 LAB L501.5600 3.5-5.1 mmol/L K Normal 4.5 LAB L501.5900 98-107 mmol/L CL Normal 99 LAB L501.6100 21.0-32.0 mmol/L High CO2 33.0 LAB L501.6200 5-15 Low GAP 4 Performed By: #### L500.2500 #### [facility] [address] [place], [place], [id number] CBC W/DIFF, AUTOMATED Collected: 04/28/2018 Status: F Source: JERRY 6:55 AM [facility] REPOSITORY TYPE CODE TESTS RESULT OUT OF RANGE REFERENCE UNITS LAB L100.1000 4.4-11.0 K/mm3 Normal WBC 6.8 LAB L100.1200 4.6-6.2 M/mm3 Low RBC 3.39 LAB L100.1300 13.0-16.5 g/dl Low HGB 9.9 LAB L100.1400 40-54 % Low HCT 30.6 LAB L100.1500 80-94 fL Normal MCV 90.3 LAB L100.1600 27.0-32.0 pg Normal MCH 29.2 LAB L100.1700 32-36 g/gl Normal MCHC 32.4 LAB L100.1810 11.6-14.6 % High RDW CV 15.4 LAB L100.1820 35.1-43.9 fl High RDW SD 50.7 LAB L100.1900 150-450 K/mm3 Low PLT 117 LAB L100.2000 6.2-12.0 fl Normal MPV 9.8 LAB L100.2100 47-70 % Normal NEUT% 64.4 LAB L100.2200 19-41 % Normal LY% 21.5 LAB L100.2300 0-10 % Normal MONO% 8.3 LAB L100.2400 0-5 % High EO% 5.2 LAB L100.2500 0-1 % Normal BASO% 0.3 LAB L100.2550 0.0-0.9 % Normal IM GRAN % 0.300 Result Comment: IG% - Immature Granulocytes (promyelocytes, myelocytes and metamyelocytes) > 1% indicates that a LEFT SHIFT is Present. LAB L100.2620 2.0-7.7 X10 3/uL Normal Absolute Neut 4.4 LAB L100.2720 0.83-4.51 X10 3/ul Normal Absolute Lymph 1.45 Performed By: #### L100.0100 #### [facility] [address] [place], [place], [address] BASIC METABOLIC Collected: 04/28/2018 Status: F Source: JERRY PROFILE (BMP) 6:55 AM [facility] REPOSITORY Order Comment: RM 102 TYPE CODE TESTS RESULT OUT OF RANGE REFERENCE UNITS LAB L501.0100 74-106 mg/dL Normal GLU 80 Result Comment: Please note revised GLUCOSE reference range effective 2017. LAB L501.1000 7-18 mg/dL High BUN 29 LAB L501.1100 0.70-1.30 mg/dL High CREAT,SERUM 2.13 Result Comment: The validity of the calculated GFR AND GFRAA in patients over 70 years has not been determined. Clinical correlation is essential. LAB L501.1110 >60 mL/min Low EST GFR 32 Result Comment: Non- GFR Calc LAB L501.1115 >60 mL/min Low EST GFR - AA 39 Result Comment: GFR Calc LAB L501.1300 10-20 RATIO Normal BUN/CRE 13.6 LAB L501.2200 8.5-10.1 mg/dL Low CA 8.2 LAB L501.5300 136-145 mmol/L NA Normal 137 LAB L501.5600 3.5-5.1 mmol/L K Normal 4.0 LAB L501.5900 98-107 mmol/L CL Normal 100 LAB L501.6100 21.0-32.0 mmol/L Normal CO2 29.0 LAB L501.6200 5-15 Normal GAP 8 Performed By: #### L500.2500 #### [facility] [address] [place], [address] CBC W/DIFF, AUTOMATED Collected: 04/06/2018 Status: F Source: QUINTER 4:43 AM [facility] REPOSITORY Order Comment: ROOM 102 TYPE CODE TESTS RESULT OUT OF RANGE REFERENCE UNITS LAB L100.1000 4.4-11.0 K/mm3 Normal WBC 7.5 LAB L100.1200 4.6-6.2 M/mm3 Low RBC 3.47 LAB L100.1300 13.0-16.5 g/dl Low HGB 10.4 LAB L100.1400 40-54 % Low HCT 31.7 LAB L100.1500 80-94 fL Normal MCV 91.4 LAB L100.1600 27.0-32.0 pg Normal MCH 30.0 LAB L100.1700 32-36 g/gl Normal MCHC 32.8 LAB L100.1810 11.6-14.6 % High RDW CV 15.2 LAB L100.1820 35.1-43.9 fl High RDW SD 49.4 LAB L100.1900 150-450 K/mm3 Low PLT 146 LAB L100.2000 6.2-12.0 fl Normal MPV 10.3 LAB L100.2100 47-70 % Normal NEUT% 65.2 LAB L100.2200 19-41 % Normal LY% 22.9 LAB L100.2300 0-10 % Normal MONO% 8.4 LAB L100.2400 0-5 % Normal EO% 3.1 LAB L100.2500 0-1 % Normal BASO% 0.3 LAB L100.2550 0.0-0.9 % Normal IM GRAN % 0.100 Result Comment: IG% - Immature Granulocytes (promyelocytes, myelocytes and metamyelocytes) > 1% indicates that a LEFT SHIFT is Present. LAB L100.2620 2.0-7.7 X10 3/uL Normal Absolute Neut 4.9 LAB L100.2720 0.83-4.51 X10 3/ul Normal Absolute Lymph 1.73 Performed By: #### L100.0100 #### [facility] [address] [place], [address] BASIC METABOLIC Collected: 04/06/2018 Status: F Source: QUINTER PROFILE ([facility]) 4:43 AM [facility] REPOSITORY Order Comment: ROOM 102 TYPE CODE TESTS RESULT OUT OF RANGE REFERENCE UNITS LAB L501.0100 74-106 mg/dL Normal GLU 87 Result Comment: Please note revised GLUCOSE reference range effective 2017. LAB L501.1000 7-18 mg/dL High BUN 39 LAB L501.1100 0.70-1.30 mg/dL High CREAT,SERUM 1.92 Result Comment: The validity of the calculated GFR AND GFRAA in patients over 70 years has not been determined. Clinical correlation is essential. LAB L501.1110 >60 mL/min Low EST GFR 36 Result Comment: Non- GFR Calc LAB L501.1115 >60 mL/min Low EST GFR - AA 43 Result Comment: GFR Calc LAB L501.1300 10-20 RATIO High BUN/CRE 20.3 LAB L501.2200 8.5-10.1 mg/dL Low CA 8.3 LAB L501.5300 136-145 mmol/L NA Normal 138 LAB L501.5600 3.5-5.1 mmol/L K Normal 4.2 LAB L501.5900 98-107 mmol/L CL Normal 102 LAB L501.6100 21.0-32.0 mmol/L Normal CO2 29.0 LAB L501.6200 5-15 Normal GAP 7 Performed By: #### L500.2500 #### [facility] [address] [place], [place], [address] BASIC METABOLIC Collected: 03/31/2018 Status: F Source: QUINTER PROFILE (BMP) 6:15 AM [facility] REPOSITORY Order Comment: ROOM 102 TYPE CODE TESTS RESULT OUT OF RANGE REFERENCE UNITS LAB L501.0100 74-106 mg/dL Normal GLU 88 Result Comment: Please note revised GLUCOSE reference range effective 2017. LAB L501.1000 7-18 mg/dL High BUN 30 LAB L501.1100 0.70-1.30 mg/dL High CREAT,SERUM 2.26 Result Comment: The validity of the calculated GFR AND GFRAA in patients over 70 years has not been determined. Clinical correlation is essential. LAB L501.1110 >60 mL/min Low EST GFR 30 Result Comment: Non- GFR Calc LAB L501.1115 >60 mL/min Low EST GFR - AA 36 Result Comment: GFR Calc LAB L501.1300 10-20 RATIO Normal BUN/CRE 13.3 LAB L501.2200 8.5-10.1 mg/dL Low CA 8.2 LAB L501.5300 136-145 mmol/L NA Normal 141 LAB L501.5600 3.5-5.1 mmol/L K Normal 4.2 LAB L501.5900 98-107 mmol/L CL Normal 102 LAB L501.6100 21.0-32.0 mmol/L Normal CO2 29.0 LAB L501.6200 5-15 Normal GAP 10 Performed By: #### L500.2500 #### [facility] [address] [place], [place], [address] CBC W/DIFF, AUTOMATED Collected: 03/31/2018 Status: F Source: QUINTER 6:15 AM [facility] REPOSITORY Order Comment: ROOM 102 TYPE CODE TESTS RESULT OUT OF RANGE REFERENCE UNITS LAB L100.1000 4.4-11.0 K/mm3 Normal WBC 7.2 LAB L100.1200 4.6-6.2 M/mm3 Low RBC 3.43 LAB L100.1300 13.0-16.5 g/dl Low HGB 10.0 LAB L100.1400 40-54 % Low HCT 31.5 LAB L100.1500 80-94 fL Normal MCV 91.8 LAB L100.1600 27.0-32.0 pg Normal MCH 29.2 LAB L100.1700 32-36 g/gl Low MCHC 31.7 LAB L100.1810 11.6-14.6 % High RDW CV 15.3 LAB L100.1820 35.1-43.9 fl High RDW SD 51.8 LAB L100.1900 150-450 K/mm3 Low PLT 133 LAB L100.2000 6.2-12.0 fl Normal MPV 9.8 LAB L100.2100 47-70 % Normal NEUT% 64.0 LAB L100.2200 19-41 % Normal LY% 23.6 LAB L100.2300 0-10 % Normal MONO% 7.8 LAB L100.2400 0-5 % Normal EO% 4.2 LAB L100.2500 0-1 % Normal BASO% 0.3 LAB L100.2550 0.0-0.9 % Normal IM GRAN % 0.100 Result Comment: IG% - Immature Granulocytes (promyelocytes, myelocytes and metamyelocytes) > 1% indicates that a LEFT SHIFT is Present. LAB L100.2620 2.0-7.7 X10 3/uL Normal Absolute Neut 4.6 LAB L100.2720 0.83-4.51 X10 3/ul Normal Absolute Lymph 1.69 Performed By: #### L100.0100 #### [facility] [address] [place], [place], [id number] LIPID PROFILE Collected: 03/13/2018 Status: F Source: JERRY 5:25 AM [facility] REPOSITORY Order Comment: 102 TYPE CODE TESTS RESULT OUT OF RANGE REFERENCE UNITS LAB L501.4900 200 mg/dL Normal CHOL 93 Result Comment: <200 mg/dL Desirable 200-240 mg/dL Borderline >240 mg/dL High Risk LAB L501.5000 mg/dL Normal TRIG 40 Result Comment: The drugs N-Acetylcysteine and Metamizole may falsely depress this assay. Serum Triglycerides Reference Interval Normal <150 mg/dL Borderline high 150 - 199 mg/dL High 200 - 499 mg/dL Very High > or = 500 mg/dL LAB L501.6400 mg/dL Normal HDL 44 Result Comment: The drugs N-Acetylcysteine and Metamizole may falsely depress this assay. Reference Range HDL <40 mg/dL Low HDL Cholesterol HDL >or= 60 mg/dL High HDL Cholesterol LAB L501.6500 0-130 mg/dL Normal LDL 41 LAB L501.6600 5-40 mg/dL Normal VLDL 8 Performed By: #### L500.4100 #### [facility] [address] [place], [address] COMPREHENSIVE METABOLIC Collected: 03/12/2018 Status: F Source: [facility] 9:25 AM [facility] REPOSITORY Order Comment: 102 TYPE CODE TESTS RESULT OUT OF RANGE REFERENCE UNITS LAB L501.0100 74-106 mg/dL Normal GLU 89 Result Comment: Please note revised GLUCOSE reference range effective 2017. LAB L501.1000 7-18 mg/dL High BUN 29 LAB L501.1100 0.70-1.30 mg/dL High CREAT,SERUM 2.08 Result Comment: The validity of the calculated GFR AND GFRAA in patients over 70 years has not been determined. Clinical correlation is essential. LAB L501.1110 >60 mL/min Low EST GFR 33 Result Comment: Non- GFR Calc LAB L501.1115 >60 mL/min Low EST GFR - AA 40 Result Comment: GFR Calc LAB L501.1300 10-20 RATIO Normal BUN/CRE 13.9 LAB L501.1500 6.4-8.2 g/dL T Normal PROT 6.9 LAB L501.1800 3.2-5.0 g/dL Low ALB 3.0 LAB L501.1950 2.2-4.2 g/dL Normal GLOB 3.9 LAB L501.2000 0.9-2.4 RATIO Low A/G 0.8 LAB L501.2200 8.5-10.1 mg/dL Low CA 8.2 LAB L501.4100 15-37 U/L Low AST 12 LAB L501.4305 45-117 U/L Normal ALK P 63 LAB L501.4405 16-61 U/L Low ALT 12 LAB L501.4600 0.20-1.00 mg/dL T Normal BILI 0.40 LAB L501.5300 136-145 mmol/L NA Normal 142 LAB L501.5600 3.5-5.1 mmol/L K Normal 3.8 LAB L501.5900 98-107 mmol/L CL Normal 103 LAB L501.6100 21.0-32.0 mmol/L Normal CO2 31.0 LAB L501.6200 5-15 Normal GAP 8 Performed By: #### L500.4050 #### [facility] [address] [place], [address] CBC W/DIFF, AUTOMATED Collected: 03/12/2018 Status: F Source: QUINTER 9:25 AM [facility] REPOSITORY Order Comment: 102 TYPE CODE TESTS RESULT OUT OF RANGE REFERENCE UNITS LAB L100.1000 4.4-11.0 K/mm3 Normal WBC 6.5 LAB L100.1200 4.6-6.2 M/mm3 Low RBC 3.46 LAB L100.1300 13.0-16.5 g/dl Low HGB 10.2 LAB L100.1400 40-54 % Low HCT 31.1 LAB L100.1500 80-94 fL Normal MCV 89.9 LAB L100.1600 27.0-32.0 pg Normal MCH 29.5 LAB L100.1700 32-36 g/gl Normal MCHC 32.8 LAB L100.1810 11.6-14.6 % High RDW CV 15.5 LAB L100.1820 35.1-43.9 fl High RDW SD 51.1 LAB L100.1900 150-450 K/mm3 Low PLT 112 LAB L100.2000 6.2-12.0 fl Normal MPV 10.0 LAB L100.2100 47-70 % Normal NEUT% 68.4 LAB L100.2200 19-41 % Normal LY% 19.4 LAB L100.2300 0-10 % Normal MONO% 8.0 LAB L100.2400 0-5 % Normal EO% 4.0 LAB L100.2500 0-1 % Normal BASO% 0.2 LAB L100.2550 0.0-0.9 % Normal IM GRAN % 0.000 Result Comment: IG% - Immature Granulocytes (promyelocytes, myelocytes and metamyelocytes) > 1% indicates that a LEFT SHIFT is Present. LAB L100.2620 2.0-7.7 X10 3/uL Normal Absolute Neut 4.5 LAB L100.2720 0.83-4.51 X10 3/ul Normal Absolute Lymph 1.26 Performed By: #### L100.0100 #### [facility] [address] [place], [address] VITAMIN D,25 HYDROXY Collected: 03/12/2018 Status: F Source: JERRY 9:25 AM [facility] REPOSITORY Order Comment: 102 TYPE CODE TESTS RESULT OUT OF RANGE REFERENCE UNITS LAB L506.1000 29.95-100.01 ng/mL Normal Vitamin D 40.8 25-OH Result Comment: Vitamin D 25(OH) Status Range Deficiency <20 ng/mL (50nmol/L) Insuffciency 20 - 30 ng/mL (50 - 75 nmol/L) Sufficiency 30 - 100 ng/mL (75 - 250 nmol/L) Toxicity >100 ng/mL (>250 nmol/L) Performed By: #### L506.1000 #### [facility] [address] [place], [address] ALLERGIES ALLERGIES No Allergies Records FoundENCOUNTERS ENCOUNTERS ADMIT/DISCHARGE ACCOUNT ADMITTING ENCOUNTER LOCATION SOURCE NUMBER [facility] 07/27/2018 [id number] Ambulatory Jerry [place] [facility] ing:OLS.AVEB Repository 07/21/2018 [id number] Ambulatory Jerry Jerry 7 [facility] ing:OLS.AVEB Repository 07/07/2018 [id number] Ambulatory Jerry Jerry 8 [facility] ing:OLS.AVEB Repository 07/06/2018 [id number] Ambulatory Building:[facility] Repository 06/26/2018 [id number] Ambulatory Jerry [place] 5 [facility] ing:OLS.AVEB Repository 06/23/2018 [id number] Ambulatory Jerry Jerry 8 [facility] ing:OLS.AVEB Repository 06/01/2018 [id number] Ambulatory Jerry Jerry 6 [facility] ing:OLS.AVEB Repository 05/26/2018 [id number] Ambulatory Jerry Jerry 4 [facility] ing:OLS.AVEB Repository 05/04/2018 [id number] [place] [facility] ing:OLS.AVEB Repository 04/28/2018 [id number] Ambulatory Jerry [place] 5 [facility] ing:OLS.AVEB Repository 04/06/2018 [id number] [place] [facility] ing:OLS.AVEB Repository 03/31/2018 [id number] Ambulatory [place] Jerry 9 [facility] ing:OLS.AVEB Repository 03/13/2018 [id number] Ambulatory [place] [facility] ing:OLS.AVEB Repository 03/12/2018 [id number] Ambulatory [place] [facility] ing:OLS.AVEB Repository PAYERS PAYERS ENCOUNTER GUARANTOR PAYER SUBSCRIBER SOURCE 07/27/2018 Nestor W Primary NOT GIVENUNK [place] [id number] [place] Insurance:SELF PAY [facility] BONEWINTER Number: Effective [place], [place] Date:2018-07-27 [id number]: () 07/21/2018 Nestor W Primary NOT GIVENUNK [place] [id number] [place] Insurance:SELF PAY [facility] BONEWINTER Number: Effective [place], [place] Date:2018-07-21 [id number]: (HP) 07/07/2018 Nestor W Primary NOT GIVENUNK [place] [id number] [place] Insurance:SELF PAY [facility] BONEWINTER Number: Effective [place], [place] Date:2018-07-07 [id number]: (HP) 07/06/2018 Nestor W Primary Nestor W OHIP Practices BoneDOB: Insurance:MedicarePol BoneDOB: Repository [id number] icy Number: [id number] [facility] [id number] 7 [facility] [place] Date:Plan Name:[place] [id number]: ([phone]) Nata [id number], [address]Mcf: [place] [address]SZ: (HP) (HP) [phone] () 07/06/2018 Secondary Nestor Mckeon OHIP Practices Insurance:[place] of BoneDOB: Repository [facility] Number: [id number] [facility] Date:7392-11-36Euec [place] Name:[place]ual of [place] [address]Utn: KRYSTA Burkett ~([phone]: [phone] 06/26/2018 Nestor W Primary Nestor W [place] [id number] [place] Insurance:MEDICARE BoneDOB: Community [facility] PART A [facility] [id number] Hospital BONEWINTER Number: Repository [place], [place] [id number]: (330) Date:2018-06-26 () 06/26/2018 Secondary NOT GIVENUNK [place] Insurance:SELF PAY [facility] Number: Effective Repository Date:2018-06-26 06/23/2018 Nestor W Primary Nestor W Jerry [id number] [place] Insurance:MEDICARE BoneDOB: Community [place] PART A [facility] [id number] Hospital BONEWINTER Number: Repository [place], [place] [id number]: (330) Date:2018-06-23 () 06/23/2018 Secondary NOT GIVENUNK Jerry Insurance:SELF PAY [facility] Number: Effective Repository Date:2018-06-23 06/01/2018 Nestor W Primary Nestor W [place] [id number] [place] Insurance:MEDICARE BoneDOB: Community [place] PART A [facility] [id number] Hospital BONEWINTER Number: Repository ARABELLA FINLEY [id number]: (330) Date:2018-06-01 () 06/01/2018 Secondary NOT GIVENUNK Jerry Insurance:SELF PAY [facility] Number: Effective Repository Date:2018-06-01 05/26/2018 Nestor Mckeon Primary Nestor Edwards [id number] [place] Insurance:MEDICARE BoneDOB: Community [place] PART A [facility] [id number] Hospital BONEWINTER Number: Repository ARABELLA FINLEY [id number]: (330) Date:2018-05-26 () 05/26/2018 Secondary NOT GIVENUNK [place] Insurance:SELF PAY [facility] Number: Effective Repository Date:2018-05-26 05/04/2018 Nestor Mckeon Primary Nestor Mckeon Jerry [id number] [place] Insurance:MEDICARE BoneDOB: Community [place] PART A [facility] [id number] Hospital BONEWINTER Number: Repository ARABELLA FINELY [id number]: (330) Date:2018-05-04 () 05/04/2018 Secondary NOT GIVENUNK [place] Insurance:SELF PAY [facility] Number: Effective Repository Date:2018-05-04 04/28/2018 Nestor Mckeon Primary Nestor Mckeon Jerry [id number] [place] Insurance:MEDICARE BoneDOB: Community [place] PART A [facility] [id number] Hospital BONEWINTER Number: Repository ARABELLA FINLEY [id number]: (330) Date:2018-04-28 () 04/28/2018 Secondary NOT GIVENUNK Jerry Insurance:SELF PAY [facility] Number: Effective Repository Date:2018-04-28 04/06/2018 Nestor Mckeon Primary Nestor Mckeon Jerry [id number] [place] Insurance:MEDICARE BoneDOB: Community [place] PART A [facility] [id number] Hospital BONEWINTER Number: ARABELLA Newell [id number]: (330) Date:2018-04-06 () 04/06/2018 Secondary NOT GIVENUNK Jerry Insurance:SELF PAY [facility] Number: Effective Repository Date:2018-04-06 03/31/2018 Nestor Mckeon Primary Nestor Edwards [id number] [place] Insurance:MEDICARE BoneDOB: Community [place] PART A [facility] [id number] Hospital BONEWINTER Number: Repository ARABELLA FINLEY [id number]: (330) Date:2018-03-311622 () 03/31/2018 Secondary NOT GIVENUNK Jerry Insurance:SELF PAY [facility] Number: Effective Repository Date:2018-03-31 03/13/2018 Nestor Mckeon Primary Nestor Edwards [id number] Insurance:MEDICARE BoneDOB: [facility] [id number] Repository [id number]: 419 [id number] [phone] () Date:2018-03-13 03/13/2018 Secondary NOT GIVENUNK [place] Insurance:SELF PAY [facility] Number: Effective Repository Date:2018-03-13 03/12/2018 Nestor Mckeon Primary Nestor Mckeon [place] [id number] Insurance:MEDICARE BoneDOB: [facility] [id number] Number: Repository [id number]: 419 [id number] [phone] () Date:2018-03-12 03/12/2018 Secondary NOT GIVENUNK Jerry Insurance:SELF PAY [facility] Number: Effective Repository Date:2018-03-12
== END ==
LOC: OLS.AVEB 13:10
PROVIDERS: Visit Provider Family Medicine
DX: N39.0 Urinary tract infection, site not specified (principal)
CPT/HCPCS: 81001

== ENCOUNTER → 2018-07-21 04:00 | Outpatient (REF) | payer MEDICARE, MEDICAID, SELFPAY ==
[2018-07-21 08:33] LABS: Basophil# 0.01 X10^3/uL; Basophil% 0.2 % (0-1); Eosinophil# 0.29 X10^3/uL; Eosinophils% 4.5 % (0-5); Hematocrit 30.6 % (40-54); Hemoglobin 9.9 g/dl (13.0-16.5); Lymphocyte % 23.3 % (19-41); Mean Corp Hgb Conc 32.4 g/gl (32-36); Mean Corpuscular Hgb 29.6 pg (27.0-32.0); Mean Corpuscular Volume 91.3 fL (80-94); Mean Platelet Vol. 10.4 fl (6.2-12.0); Monocyte# 0.63 X10^3/uL; Monocyte% 9.8 % (0-10); Neutrophil # 3.99 X10^3/uL (2.7-7.7); Platelet Count 154 K/mm3 (150-450); RBC Distribution Width CV 14.9 % (11.6-14.6); RBC Distribution Width SD 48.5 fl (35.1-43.9); Red Blood Count 3.35 M/mm3 (4.6-6.2); White Blood Count 6.4 K/mm3 (4.4-11.0)
[2018-07-21 08:34] LABS: POSITIVE COUNT NO; POSITIVE DIFFERENTIAL NO; POSITIVE MORPHOLOGY NO
[2018-07-21 08:40] LABS: Anion Gap 5 (5-15); BUN 27 mg/dL (7-18); BUN/Creat Ratio 14.2 RATIO (10-20); Calcium,Total 7.8 mg/dL (8.5-10.1); Chloride 100 mmol/L (98-107); EST Glomerular Filtration Rate 36 mL/min (>60); Est Glom Filt Rate - Afr Amer 44 mL/min (>60); Glucose 73 mg/dL (74-106); Potassium 3.9 mmol/L (3.5-5.1); Sodium Level 137 mmol/L (136-145)
--- OUTSIDE RECORDS SUMMARY | 2018-09-06 04:36 | XMS RPT_ITS ---
:1935 Author Organization [place] Support Name Relationship Address Phone María Cortez Unavailable [address] + [place] [address] R Unavailable Unavailable Unavailable Bone, María Unavailable [address] + [place] [address] R Unavailable Unavailable Unavailable Bone, María Unavailable [address] + [place] [address] R Unavailable Unavailable Unavailable Bone, María Unavailable [address] + [place] [address] R Unavailable Unavailable Unavailable Bone, María Unavailable [address] + [place] [address] R Unavailable Unavailable Unavailable Bone, María Unavailable [address] + [place] [address] R Unavailable Unavailable Unavailable Bone, María Unavailable [address] + [place] [address] R Unavailable Unavailable Unavailable Bone, María Unavailable [address] + [place] [address] R Unavailable Unavailable Unavailable Bone, María Unavailable [address] + [place] [address] R Unavailable Unavailable Unavailable Bone, María Unavailable [address] + [place] [address] R Unavailable Unavailable Unavailable Bone, María Unavailable [address] + [place] [address] R Unavailable Unavailable Unavailable Bone, María Unavailable [address] + [place] [address] R Unavailable Unavailable Unavailable Bone, María Unavailable [address] + [place] [address] R Unavailable Unavailable Unavailable Bone, María Unavailable [address] + [place] [address] R Unavailable Unavailable Unavailable Bone, María Unavailable [address] + [place] [address] R Unavailable Unavailable Unavailable Care Team Providers Name Role Phone Vishal, Catalina Attending Unavailable Ciesa, Catalina Referring Unavailable Ciesa, Catalina Consulting Unavailable Black, Davi Attending Unavailable [...] TYPE CONDITION / CODE ATTENDING STATUS SOURCE 08/28/2018 Unknown E78.5 - Black, Davi Active [facility] Hyperlipidemia, Community unspecified / Hospital E78.5(ICD-10) Repository 08/17/2018 Unknown N18.9 - Chronic Black, Davi Active [facility] kidney disease, Community unspecified / Hospital N18.9(ICD-10) Repository 08/05/2018 Unknown M48.46XA - Fatigue Black, Davi Active [facility] fracture of Community vertebra, lumbar Hospital region, initial Repository encounter for fracture / M48.46XA(ICD-10) 08/01/2018 Unknown N39.0 - Urinary Black, Davi Active [facility] tract infection, Community site not specified Hospital / N39.0(ICD-10) Repository 08/01/2018 Unknown S32.038A - Other Black, Davi Active [facility] fracture of third Community lumbar vertebra, Hospital initial encounter Repository for closed fracture / S32.038A(ICD-10) 08/01/2018 Unknown I10 - Essential Black, Davi Active [facility] (primary) Community hypertension / Hospital I10(ICD-10) Repository 08/01/2018 Unknown N18.4 - Chronic Black, Davi Active [facility] kidney disease, Community stage 4 (severe) / Hospital N18.4(ICD-10) Repository 08/01/2018 Unknown D69.6 - Black, Davi Active [facility] Thrombocytopenia, Community unspecified / Hospital D69.6(ICD-10) Repository 08/01/2018 Unknown D64.9 - Anemia, Davi Black Active [facility] unspecified / Community D64.9(ICD-10) Hospital Repository PROCEDURES PROCEDURES No Procedure Records FoundRESULTS RESULTS CBC W/DIFF, AUTOMATED Collected: 2018 Status: F Source: ERNST 4:45 AM [facility] Order Comment: ROOM 102 TYPE CODE TESTS RESULT OUT OF RANGE REFERENCE UNITS LAB L100.1000 4.4-11.0 K/mm3 Normal WBC 6.9 LAB L100.1200 4.6-6.2 M/mm3 Low RBC 3.45 LAB L100.1300 13.0-16.5 g/dl Low HGB 10.3 LAB L100.1400 40-54 % Low HCT 31.7 LAB L100.1500 80-94 fL Normal MCV 91.9 LAB L100.1600 27.0-32.0 pg Normal MCH 29.9 LAB L100.1700 32-36 g/gl Normal MCHC 32.5 LAB L100.1810 11.6-14.6 % High RDW CV 15.4 LAB L100.1820 35.1-43.9 fl High RDW SD 50.3 LAB L100.1900 150-450 K/mm3 Low PLT 133 LAB L100.2000 6.2-12.0 fl Normal MPV 10.9 LAB L100.2100 47-70 % Normal NEUT% 69.1 LAB L100.2200 19-41 % Low LY% 18.7 LAB L100.2300 0-10 % Normal MONO% 8.5 LAB L100.2400 0-5 % Normal EO% 3.3 LAB L100.2500 0-1 % Normal BASO% 0.3 LAB L100.2550 0.0-0.9 % Normal IM GRAN % 0.100 Result Comment: IG% - Immature Granulocytes (promyelocytes, myelocytes and metamyelocytes) > 1% indicates that a LEFT SHIFT is Present. LAB L100.2620 2.0-7.7 X10 3/uL Normal Absolute Neut 4.8 LAB L100.2720 0.83-4.51 X10 3/ul Normal Absolute Lymph 1.30 Performed By: #### L100.0100 #### [facility] [address] [place], [address] BASIC METABOLIC Collected: 2018 Status: F Source: ERNST PROFILE (BMP) 4:45 AM [facility] Order Comment: ROOM 102 TYPE CODE TESTS RESULT OUT OF RANGE REFERENCE UNITS LAB L501.0100 74-106 mg/dL Low GLU 71 Result Comment: Please note revised GLUCOSE reference range effective 2017. LAB L501.1000 7-18 mg/dL High BUN 32 LAB L501.1100 0.70-1.30 mg/dL High CREAT,SERUM 1.89 Result Comment: The validity of the calculated GFR AND GFRAA in patients over 70 years has not been determined. Clinical correlation is essential. LAB L501.1110 >60 mL/min Low EST GFR 37 Result Comment: Non- GFR Calc LAB L501.1115 >60 mL/min Low EST GFR - AA 44 Result Comment: GFR Calc LAB L501.1300 10-20 RATIO Normal BUN/CRE 16.9 LAB L501.2200 8.5-10.1 mg/dL CA Normal 8.5 LAB L501.5300 136-145 mmol/L NA Normal 138 LAB L501.5600 3.5-5.1 mmol/L K Normal 4.0 LAB L501.5900 98-107 mmol/L CL Normal 102 LAB L501.6100 21.0-32.0 mmol/L Normal CO2 29.0 LAB L501.6200 5-15 Normal GAP 7 Performed By: #### L500.2500 #### [facility] [address] [place], [address] LIPID PROFILE Collected: 08/12/2018 Status: F Source: ERNST 5:30 AM [facility] Order Comment: 102 TYPE CODE TESTS RESULT OUT OF RANGE REFERENCE UNITS LAB L501.4900 200 mg/dL Normal CHOL 103 Result Comment: <200 mg/dL Desirable 200-240 mg/dL Borderline >240 mg/dL High Risk LAB L501.5000 mg/dL Normal TRIG 86 Result Comment: The drugs N-Acetylcysteine and Metamizole may falsely depress this assay. Serum Triglycerides Reference Interval Normal <150 mg/dL Borderline high 150 - 199 mg/dL High 200 - 499 mg/dL Very High > or = 500 mg/dL LAB L501.6400 mg/dL Normal HDL 49 Result Comment: The drugs N-Acetylcysteine and Metamizole may falsely depress this assay. Reference Range HDL <40 mg/dL Low HDL Cholesterol HDL >or= 60 mg/dL High HDL Cholesterol LAB L501.6500 0-130 mg/dL Normal LDL 37 LAB L501.6600 5-40 mg/dL Normal VLDL 17 Performed By: #### L500.4100 #### [facility] [place], [address] CBC W/DIFF, AUTOMATED Collected: 07/27/2018 Status: F Source: [place] 8:30 AM [facility] TYPE CODE TESTS RESULT OUT OF [...] Lymph 1.38 Performed By: #### L100.0100 #### [facility] [address] [place], [place], [id number] RENAL PROFILE Collected: 07/27/2018 Status: F Source: ERNST 8:30 AM [facility] TYPE CODE TESTS RESULT OUT OF [...] CO2 29.0 Performed By: #### L500.3600 #### [facility] [address] [facility] [address] [place] [address], [address] PTHIN Collected: 07/27/2018 Status: F Source: ERNST 8:30 AM [facility] TYPE CODE TESTS RESULT OUT OF RANGE REFERENCE UNITS LAB L509.1000 18.4-80.1 pg/mL Normal PTHIN 48.3 Performed By: #### L509.1000 #### [facility] [address] [place], [place], [address] CBC W/DIFF, AUTOMATED Collected: 07/21/2018 Status: F Source: ERNST 6:30 AM [facility] Order Comment: 102 TYPE CODE TESTS [...] Lymph 1.50 Performed By: #### L100.0100 #### [facility] [address] [place], [address] BASIC METABOLIC Collected: 07/21/2018 Status: F Source: ERNST PROFILE (BMP) 6:30 AM [facility] Order Comment: 102 TYPE CODE TESTS [...] GAP 5 Performed By: #### L500.2500 #### [facility] [address] [place], [address] URINALYSIS, COMPLETE Collected: 07/07/2018 Status: F Source: ERNST 1:10 PM [facility] Order Comment: How was Urine Obtained? [...] URINE SEEN Performed By: #### L400.0001 #### [facility] [address] [place], [address] BASIC METABOLIC Collected: 06/26/2018 Status: F Source: [place] PROFILE (BMP) 6:05 AM [facility] Order Comment: 102 TYPE CODE TESTS [...] GAP 8 Performed By: #### L500.2500 #### [facility] [address] [place], [place], [id number] CBC W/DIFF, AUTOMATED Collected: 06/26/2018 Status: F Source: ERNST 6:05 AM [facility] Order Comment: 102 TYPE CODE TESTS [...] Lymph 1.18 Performed By: #### L100.0100 #### [facility] [address] [place], [place], [id number] CBC W/DIFF, AUTOMATED Collected: 06/23/2018 Status: F Source: ERNST 6:00 AM [facility] Order Comment: 102 TYPE CODE TESTS [...] Lymph 1.46 Performed By: #### L100.0100 #### [facility] [address] [place], [address] BASIC METABOLIC Collected: 06/23/2018 Status: F Source: ERNST PROFILE (BMP) 6:00 AM [facility] Order Comment: 102 TYPE CODE TESTS [...] GAP 10 Performed By: #### L500.2500 #### [facility] [address] [place], [address] BASIC METABOLIC Collected: 06/01/2018 Status: F Source: [place] PROFILE ([facility]) 5:00 AM [facility] Order Comment: 102 TYPE CODE TESTS [...] GAP 8 Performed By: #### L500.2500 #### [facility] [address] [place], [address] CBC W/DIFF, AUTOMATED Collected: 06/01/2018 Status: F Source: [place] 5:00 AM [facility] Order Comment: 102 TYPE CODE TESTS [...] Lymph 1.37 Performed By: #### L100.0100 #### [facility] [address] [place], [address] BASIC METABOLIC Collected: 05/26/2018 Status: F Source: [place] PROFILE (BMP) 6:00 AM [facility] TYPE CODE TESTS RESULT OUT OF [...] GAP 7 Performed By: #### L500.2500 #### [facility] [address] [place], [place], [address] CBC W/DIFF, AUTOMATED Collected: 05/26/2018 Status: F [facility]: [place] [facility] TYPE CODE TESTS RESULT OUT [...] Lymph 1.69 Performed By: #### L100.0100 #### [facility] [address] [place], [place], [address] CBC W/DIFF, AUTOMATED Collected: 05/04/2018 Status: F Source: ERNST 5:00 AM [facility] Order Comment: ROOM 102 TYPE CODE [...] Lymph 1.47 Performed By: #### L100.0100 #### [facility] [address] [place], [place], [address] BASIC METABOLIC Collected: 05/04/2018 Status: F Source: ERNST PROFILE ([facility]) 5:00 AM [facility] Order Comment: ROOM 102 TYPE CODE [...] GAP 4 Performed By: #### L500.2500 #### [facility] [address] [place], [place] [address], [address] CBC W/DIFF, AUTOMATED Collected: 04/28/2018 Status: F Source: [place] 6:55 AM [facility] TYPE CODE TESTS RESULT OUT OF [...] Lymph 1.45 Performed By: #### L100.0100 #### [facility] [address] [place], [address] BASIC METABOLIC Collected: 04/28/2018 Status: F Source: [place] PROFILE ([facility]) 6:55 AM [facility] Order Comment: RM 102 TYPE CODE [...] GAP 8 Performed By: #### L500.2500 #### [facility] [address] [place], [place], [address] CBC W/DIFF, AUTOMATED Collected: 04/06/2018 Status: F Source: ERNST 4:43 AM [facility] Order Comment: ROOM 102 TYPE CODE [...] Lymph 1.73 Performed By: #### L100.0100 #### [facility] [address] [place], [address] BASIC METABOLIC Collected: 04/06/2018 Status: F Source: ERNST PROFILE ([facility]) 4:43 AM [facility] Order Comment: ROOM 102 TYPE CODE [...] GAP 7 Performed By: #### L500.2500 #### [facility] [address] [place], [address] BASIC METABOLIC Collected: 03/31/2018 Status: F Source: ERNST PROFILE ([facility]) 6:15 AM [facility] Order Comment: ROOM 102 TYPE CODE [...] GAP 10 Performed By: #### L500.2500 #### [facility] [address] [place], [address] CBC W/DIFF, AUTOMATED Collected: 03/31/2018 Status: F Source: [place] 6:15 AM [facility] Order Comment: ROOM 102 TYPE CODE [...] Lymph 1.69 Performed By: #### L100.0100 #### [facility] [address] [facility] [place], [place], [address] LIPID PROFILE Collected: 03/13/2018 Status: F Source: [place] 5:25 AM [facility] Order Comment: 102 TYPE CODE TESTS [...] VLDL 8 Performed By: #### L500.4100 #### [facility] [address] [facility] [place], [place], [address] COMPREHENSIVE METABOLIC Collected: 03/12/2018 Status: F [facility] Order Comment: 102 TYPE CODE TESTS [...] GAP 8 Performed By: #### L500.4050 #### [facility] [address] [place], [place], [address] CBC W/DIFF, AUTOMATED Collected: 03/12/2018 Status: F Source: ERNST 9:25 AM [facility] Order Comment: 102 TYPE CODE TESTS [...] Lymph 1.26 Performed By: #### L100.0100 #### [facility] [address] [place], [place], [address] VITAMIN D,25 HYDROXY Collected: 03/12/2018 Status: F Source: ERNST 9:25 AM [facility] Order Comment: 102 TYPE CODE TESTS RESULT OUT OF RANGE REFERENCE UNITS LAB L506.1000 29.95-100.01 ng/mL Normal Vitamin D 40.8 25-OH Result Comment: Vitamin D 25(OH) Status Range Deficiency <20 ng/mL (50nmol/L) Insuffciency 20 - 30 ng/mL (50 - 75 nmol/L) Sufficiency 30 - 100 ng/mL (75 - 250 nmol/L) Toxicity >100 ng/mL (>250 nmol/L) Performed By: #### L506.1000 #### [facility] [address] [place], [address] ALLERGIES ALLERGIES No Allergies Records FoundENCOUNTERS ENCOUNTERS ADMIT/DISCHARGE ACCOUNT ADMITTING ENCOUNTER LOCATION SOURCE NUMBER CLASS 2018 [id number] Ambulatory [facility] Ernst 6 [facility] Hospital ing:OLS.AVEB Repository 08/12/2018 [id number] Ambulatory Ernst Ernst 5 [facility] Hospital ing:OLS.AVEB Repository 07/27/2018 [id number] Ambulatory [facility] 2 [facility] Hospital ing:OLS.AVEB Repository 07/21/2018 [id number] Ambulatory [facility] 7 [facility] Hospital ing:OLS.AVEB Repository 07/07/2018 [id number] Ambulatory [facility] Ernst 8 [facility] Hospital ing:OLS.AVEB Repository 07/06/2018 [id number] Ambulatory Building:[facility] Repository 06/26/2018 [id number] Ambulatory Ernst [facility] 5 [facility] Hospital ing:OLS.AVEB Repository 06/23/2018 [id number] Ambulatory [place] [facility] 8 [facility] Hospital ing:OLS.AVEB Repository 06/01/2018 [id number] Ambulatory Ernst Ernst 6 [facility] Hospital ing:OLS.AVEB Repository 05/26/2018 [id number] Ambulatory Ernst Ernst 4 [facility] ing:[facility]S.[facility] Repository 05/04/2018 [id number] Ambulatory [facility] [facility] 3 [facility] Hospital ing:OLS.AVEB Repository 04/28/2018 [id number] Ambulatory [place] Ernst 5 [facility] Hospital ing:OLS.AVEB Repository 04/06/2018 [id number] Ambulatory Ernst Ernst 1 [facility] Hospital ing:OLS.AVEB Repository 03/31/2018 [id number] Ambulatory [place] [facility] 9 [facility] Hospital ing:OLS.AVEB Repository 03/13/2018 [id number] Ambulatory [place] Ernst 7 [facility] ing:OLS.AVEB Repository 03/12/2018 [id number] Ambulatory Ernst [facility] 9 [facility] ing:OLS.AVEB Repository PAYERS PAYERS ENCOUNTER GUARANTOR PAYER SUBSCRIBER SOURCE 2018 Nestor Mckeon Primary NOT GIVENUNK Ernst [id number] [place] Insurance:SELF PAY [facility] HAMMOCKC/O MARÍA [facility] Number: Effective Repository [place], [place] Date:2018 [address]Cfe: (HP) 08/12/2018 Nestor W Primary Nestor W Ernst [id number] [place] Insurance:[facility] BoneDOB: Community HAMMOCKC/O MARÍA COMP *NOT [id number]*Policy Repository [place], [place] Number: [id number]: 330 [id number] [phone] () Date:6612-66-43HF [address] [address]PW: 08/12/2018 Secondary NOT GIVENUNK [place] Insurance:SELF PAY [facility] Number: Effective Repository Date:2018-08-12 07/27/2018 Nestor W Primary Nestor W Ernst [id number] [place] Insurance:[facility] BoneDOB: Community HAMMOCKC/O MARÍA COMP *NOT [id number] Community Hospital CONTRACTED*Policy Repository [place], [place] Number: [address]Owp: 330 [id number] [phone] (HP) Date:6101-07-78[address] [address]BF: 07/27/2018 Secondary NOT GIVENUNK Ernst Insurance:SELF PAY [facility] Number: Effective Repository Date:2018-07-27 07/21/2018 Nestor W Primary Nestor W Ernst [id number] [place] Insurance:[facility] BoneDOB: Community HAMMOCKC/O MARÍA COMP *NOT [id number] Community Hospital CONTRACTED*Policy Repository [place], [place] Number: [id number]: [phone] [id number] [phone] (HP) Date:5994-10-14[address], [place] [address]LY: 07/21/2018 Secondary NOT GIVENUNK Ernst Insurance:SELF PAY [facility] Number: Effective Repository Date:2018-07-21 07/07/2018 Nestor W Primary Nestor W Ernst [id number] [place] Insurance:[employer] [facility] BoneDOB: Community HAMMOCKC/O MARÍA COMP *NOT [id number] Community Hospital CONTRACTED*Policy Repository [place], [place] Number: [id number]: [phone] [id number] [phone] (HP) Date:2415-75-59UZ [address], [place] [address]UX: 07/07/2018 Secondary NOT GIVENUNK [place] Insurance:SELF PAY [facility] Number: Effective Repository Date:2018-07-07 07/06/2018 Nestor W Primary Nestor W OHIP Practices BoneDOB: Insurance:MedicarePol BoneDOB: Repository icy Number: [id number] [facility] [id number] 7 [place], [place] Date:Plan Name:[place] [address]Ehr: (265) [address], [address]Pjk: [place] [address]DU: (HP) (HP) [phone] () 07/06/2018 Secondary Nestor W OHIP Practices Insurance:[place] BoneDOB: Repository [facility] Number: [id number] [facility] Date:5653-30-80Zgwo [place] Name:[place] [address]Oot: KRYSTA Burkett ~(3 [id number]: [phone] 06/26/2018 Nestor W Primary Nestor W [place] [id number] [place] Insurance:[facility] BoneDOB: Community HAMMOCKC/O MARÍA COMP *NOT [id number] Community Hospital CONTRACTED*Policy Repository [place], [place] Number: [id number]: 330 [id number] [phone] (HP) Date:3527-14-73TW [address] [address]HN: 06/26/2018 Secondary NOT GIVENUNK [place] Insurance:SELF PAY Community [facility] Number: Effective Repository Date:2018-06-26 06/23/2018 Nestor W Primary Nestor W Ernst [id number] [place] Insurance:AARP MCR BoneDOB: Community HAMMOCKC/O MARÍA COMP *NOT [id number] Community Hospital CONTRACTED*Policy Repository [place], [place] Number: [id number]: 330 [id number] (HP) Date:3810-08-22LO [address] [address]UY: 06/23/2018 Secondary NOT GIVENUNK Ernst Insurance:SELF PAY Community [facility] Number: Effective Repository Date:2018-06-23 06/01/2018 Nestor W Primary Nestor W [place] [id number] [place] Insurance:AAR MCR BoneDOB: Community HAMMOCKC/O MARÍA COMP *NOT [id number] Community Hospital CONTRACTED*Policy Repository [place], [place] Number: [id number]: 330 [id number] 63 () Date:3773-45-39OB [address] [address]LP: 06/01/2018 Secondary NOT GIVENUNK [place] Insurance:SELF PAY Community [facility] Number: Effective Repository Date:2018-06-01 05/26/2018 Nestor W Primary Nestor W Ernst [id number] [place] Insurance:AARP MCR BoneDOB: Community HAMMOCKC/O MARÍA COMP *NOT [id number] Community Hospital CONTRACTED*Policy Repository [place], [place] Number: [id number]: 330 [id number] [phone] (HP) Date:3036-53-84TM [address] [address]AT: 05/26/2018 Secondary NOT GIVENUNK [place] Insurance:SELF PAY Community [facility] Number: Effective Repository Date:2018-05-26 05/04/2018 Nestor Mckeon Primary Nestor Mckeon Ernst [id number] [place] Insurance:[facility] BoneDOB: Community HAMMOCKC/O MARÍA COMP *NOT [id number] Community Hospital CONTRACTED*Policy Repository [place], [place] Number: [id number]: 330 [id number] [phone] () Date:5811-81-56RJ [address] [place] [address]WJ: 05/04/2018 Secondary NOT GIVENUNK [place] Insurance:SELF PAY [facility] Number: Effective Repository Date:2018-05-04 04/28/2018 Nestor Mckeon Primary Nestor Mckeon [place] [id number] [place] Insurance:[facility] BoneDOB: Community HAMMOCKC/O MARÍA COMP *NOT [id number] Community Hospital CONTRACTED*Policy Repository [place], [place] Number: [id number]: 330 [id number] [phone] () Date:1552-37-30QO [address] [address]PX: 04/28/2018 Secondary NOT GIVENUNK Ernst Insurance:SELF PAY [facility] Number: Effective Repository Date:2018-04-28 04/06/2018 Nestor Mckeon Primary Nestor Mckeon [place] [id number] [place] Insurance:[facility] BoneDOB: Community HAMMOCKC/O MARÍA COMP *NOT [id number] Community Hospital CONTRACTED*Policy Repository [place], [place] Number: [id number]: 330 [id number] [phone] () Date:9709-89-01CC [address] [address]SS: 04/06/2018 Secondary NOT GIVENUNK [place] Insurance:SELF PAY Community [facility] Number: Effective Repository Date:2018-04-06 03/31/2018 Nestor W Primary Nestor Mckeon [place] [id number] [place] Insurance:[facility] BoneDOB: Community HAMMOCKC/O MARÍA COMP *NOT [id number] Community Hospital CONTRACTED*Policy Repository [place], [place] Number: [id number]: 330 [id number] 63 (HP) Date:[id number] [address] [place] [id number]: 03/31/2018 Secondary NOT GIVENUNK Hobbs Insurance:SELF PAY Community [facility] Number: Effective Repository Date:2018-03-31 03/13/2018 Nestor W Primary Nestor W Ernst [id number] Insurance:[facility] BoneDOB: Community [place] COMP *NOT [id number] [place] Number: [id number]: [id number] 63 () Date:[id number] [address] [id number]: 03/13/2018 Secondary NOT GIVENUNK Ernst Insurance:SELF PAY Community [facility] Number: Effective Repository Date:2018-03-13 03/12/2018 Nestor W Primary Nestor W Hobbs [id number] Insurance:[facility] BoneDOB: Community [place] COMP *NOT [id number]*Policy Repository [place], [place] Number: [id number]: [phone] 63 (HP) Date:[id number] [address] [place] [id number]: 03/12/2018 Secondary NOT GIVENUNK Ernst Insurance:SELF PAY Community [facility] Number: Effective Repository Date:2018-03-12
== END ==
LOC: OLS.AVEB 04:00
PROVIDERS: Visit Provider Family Medicine
DX: S32.009A Unspecified fracture of unspecified lumbar vertebra, initial encounter for closed fracture (principal)
CPT/HCPCS: 36415; 80048; 85025

== ENCOUNTER → 2018-07-27 04:00 | Outpatient (REF) | payer MEDICARE, MEDICAID, SELFPAY ==
[2018-07-27 09:42] LABS: Absolute Lymphocyte Count 1.38 X10^3/ul (0.83-4.51); Absolute Neutrophil Count 3.9 X10^3/uL (2.0-7.7); Basophil# 0.01 X10^3/uL; Basophil% 0.2 % (0-1); Eosinophil# 0.25 X10^3/uL; Eosinophils% 4.2 % (0-5); Hematocrit 31.8 % (40-54); Hemoglobin 10.3 g/dl (13.0-16.5); Lymphocyte # 1.38 X10^3/ul (4.0); Lymphocyte % 22.9 % (19-41); Mean Corp Hgb Conc 32.4 g/gl (32-36); Mean Corpuscular Volume 89.6 fL (80-94); Mean Platelet Vol. 9.9 fl (6.2-12.0); Monocyte% 8.3 % (0-10); Neutrophil # 3.87 X10^3/uL (2.7-7.7); Neutrophil % 64.2 % (47-70); Platelet Count 118 K/mm3 (150-450); RBC Distribution Width CV 15.1 % (11.6-14.6); RBC Distribution Width SD 49.5 fl (35.1-43.9); Red Blood Count 3.55 M/mm3 (4.6-6.2)
[2018-07-27 09:43] LABS: POSITIVE COUNT NO; POSITIVE DIFFERENTIAL NO; POSITIVE MORPHOLOGY NO
[2018-07-27 10:00] LABS: BUN 28 mg/dL (7-18); BUN/Creat Ratio 15.4 RATIO (10-20); Chloride 101 mmol/L (98-107); Creatinine, Serum 1.82 mg/dL (0.70-1.30); EST Glomerular Filtration Rate 38 mL/min (>60); Est Glom Filt Rate - Afr Amer 46 mL/min (>60); Glucose 78 mg/dL (74-106); Phosphorus 2.9 mg/dL (2.5-4.9); Sodium Level 137 mmol/L (136-145)
[2018-07-27 10:41] LABS: PTHIN 48.3 pg/mL (18.4-80.1)
--- OUTSIDE RECORDS SUMMARY | 2018-10-28 15:15 | XMS RPT_ITS ---
:1935 Author Organization [place] Support Name Relationship Address Phone María Cortez Unavailable [address] + [place] [address] R Unavailable Unavailable Unavailable Bone, María Unavailable [address] + [place] [address] R Unavailable Unavailable Unavailable Bone, María Unavailable [address] + [place] [address] R Unavailable Unavailable Unavailable Bone, María Unavailable [address] + [place] [address] R Unavailable Unavailable Unavailable Bone, María Unavailable [address] + [place] [address] R Unavailable Unavailable Unavailable Bone, María Unavailable [address] + [place] [address] R Unavailable Unavailable Unavailable Bone, María Unavailable [address] + [place] [address] R Unavailable Unavailable Unavailable Bone, María Unavailable [address] + [place] [address] R Unavailable Unavailable Unavailable Bone, María Unavailable [address] + [place] [address] R Unavailable Unavailable Unavailable Bone, María Unavailable [address] + [place] [address] R Unavailable Unavailable Unavailable Bone, María Unavailable [address] + [place] [address] R Unavailable Unavailable Unavailable Bone, María Unavailable [address] + [place] [address] R Unavailable Unavailable Unavailable Bone, María Unavailable [address] + [place] [address] R Unavailable Unavailable Unavailable Bone, María Unavailable [address] + [place] [address] R Unavailable Unavailable Unavailable Bone, María Unavailable [address] + [place] [address] R Unavailable Unavailable Unavailable Bone, María Unavailable [address] + [place] [address] R Unavailable Unavailable Unavailable Care Team Providers [...] ATTENDING STATUS SOURCE 08/28/2018 Unknown E78.5 - BlackDavi estes Active [place] Hyperlipidemia, Community unspecified / Hospital E78.5(ICD-10) Repository 08/17/2018 Unknown N18.9 - Chronic Black, Davi Active [place] kidney disease, Community unspecified / Hospital N18.9(ICD-10) Repository 08/05/2018 Unknown M48.46XA - Fatigue Black, Davi Active [place] fracture of Community vertebra, lumbar Hospital region, initial Repository encounter for fracture / M48.46XA(ICD-10) 08/01/2018 Unknown N39.0 - Urinary Black, Davi Active [place] tract infection, Community site not specified Hospital / N39.0(ICD-10) Repository 08/01/2018 Unknown S32.038A - Other Black, Davi Active [place] fracture of third Community lumbar vertebra, Hospital initial encounter Repository for closed fracture / S32.038A(ICD-10) 08/01/2018 Unknown I10 - Essential Black, Davi Active [place] (primary) Community hypertension / Hospital I10(ICD-10) Repository 08/01/2018 Unknown N18.4 - Chronic Black, Davi Active [place] kidney disease, Community stage 4 (severe) / Hospital N18.4(ICD-10) Repository 08/01/2018 Unknown D69.6 - Davi Black Active [place] Thrombocytopenia, Community unspecified / Hospital D69.6(ICD-10) Repository 08/01/2018 Unknown D64.9 - Anemia, Davi Black Active [place] unspecified / Community D64.9(ICD-10) Hospital Repository PROCEDURES PROCEDURES No Procedure Records FoundRESULTS RESULTS CBC-COMPLETE BLOOD CNT Collected: 09/02/2018 Status: F Source: ERNST NO DIFF 6:45 AM [facility] REPOSITORY TYPE CODE TESTS RESULT OUT OF RANGE REFERENCE UNITS LAB L100.1000 4.4-11.0 K/mm3 Normal WBC 7.2 LAB L100.1200 4.6-6.2 M/mm3 Low RBC 3.85 LAB L100.1300 13.0-16.5 g/dl Low HGB 11.7 LAB L100.1400 40-54 % Low HCT 34.5 LAB L100.1500 80-94 fL Normal MCV 89.6 LAB L100.1600 27.0-32.0 pg Normal MCH 30.4 LAB L100.1700 32-36 g/gl Normal MCHC 33.9 LAB L100.1810 11.6-14.6 % High RDW CV 15.4 LAB L100.1820 35.1-43.9 fl High RDW SD 50.9 LAB L100.1900 150-450 K/mm3 Low PLT 134 LAB L100.2000 6.2-12.0 fl Normal MPV 10.7 Performed By: #### L100.0500 #### [facility] [address] [place], [place] [address], [address] BASIC METABOLIC Collected: 09/02/2018 Status: F Source: ERNST PROFILE (BMP) 6:45 AM [facility] REPOSITORY TYPE CODE TESTS RESULT OUT OF RANGE REFERENCE UNITS LAB L501.0100 74-106 mg/dL Normal GLU 102 Result Comment: Fasting Glucose result from 100 to 125 mg/dL suggests IMPAIRED HOMEOSTASIS per A.D.A. criteria. Please note revised GLUCOSE reference range effective 2017. LAB L501.1000 7-18 mg/dL High BUN 41 LAB L501.1100 0.70-1.30 mg/dL High CREAT,SERUM 1.97 Result Comment: The validity of the calculated GFR AND GFRAA in patients over 70 years has not been determined. Clinical correlation is essential. LAB L501.1110 >60 mL/min Low EST GFR 35 Result Comment: Non- GFR Calc LAB L501.1115 >60 mL/min Low EST GFR - AA 42 Result Comment: GFR Calc LAB L501.1300 10-20 RATIO High BUN/CRE 20.8 LAB L501.2200 8.5-10.1 mg/dL CA Normal 8.6 LAB L501.5300 136-145 mmol/L NA Normal 139 LAB L501.5600 3.5-5.1 mmol/L K Normal 3.6 LAB L501.5900 98-107 mmol/L CL Normal 103 LAB L501.6100 21.0-32.0 mmol/L Normal CO2 25.0 LAB L501.6200 5-15 Normal GAP 11 Performed By: #### L500.2500 #### [facility] [address] [place], [place], [address] CBC W/DIFF, AUTOMATED Collected: 2018 Status: F Source: ERNST 4:45 AM [facility] REPOSITORY Order Comment: ROOM 102 TYPE CODE [...] Lymph 1.30 Performed By: #### L100.0100 #### [facility] [address] [place], [address] BASIC METABOLIC Collected: 2018 Status: F Source: SHOCK PROFILE (BMP) 4:45 AM [facility] REPOSITORY Order Comment: ROOM 102 TYPE CODE [...] GAP 7 Performed By: #### L500.2500 #### [facility] [address] [place], [place], [address] LIPID PROFILE Collected: 08/12/2018 Status: F Source: SHOCK 5:30 AM [facility] REPOSITORY Order Comment: 102 TYPE CODE TESTS [...] VLDL 17 Performed By: #### L500.4100 #### [facility] [address] [facility] [place], [address] CBC W/DIFF, AUTOMATED Collected: 07/27/2018 Status: F Source: ERNST 8:30 AM [facility] REPOSITORY TYPE CODE TESTS RESULT OUT [...] Lymph 1.38 Performed By: #### L100.0100 #### [facility] [address] [place], [address] RENAL PROFILE Collected: 07/27/2018 Status: F Source: SHOCK 8:30 AM [facility] REPOSITORY TYPE CODE TESTS RESULT OUT [...] CO2 29.0 Performed By: #### L500.3600 #### [facility] [address] [place], [address] PTHIN Collected: 07/27/2018 Status: F Source: SHOCK 8:30 AM [facility] REPOSITORY TYPE CODE TESTS RESULT OUT OF RANGE REFERENCE UNITS LAB L509.1000 18.4-80.1 pg/mL Normal PTHIN 48.3 Performed By: #### L509.1000 #### [facility] [address] [place], [address] CBC W/DIFF, AUTOMATED Collected: 07/21/2018 Status: F Source: SHOCK 6:30 AM [facility] REPOSITORY Order Comment: 102 TYPE CODE TESTS [...] Lymph 1.50 Performed By: #### L100.0100 #### [facility] [address] [place], [address] BASIC METABOLIC Collected: 07/21/2018 Status: F Source: SHOCK PROFILE (BMP) 6:30 AM [facility] REPOSITORY Order Comment: 102 TYPE CODE TESTS [...] GAP 5 Performed By: #### L500.2500 #### [facility] [address] [place], [place], [address] URINALYSIS, COMPLETE Collected: 07/07/2018 Status: F Source: ERNST 1:10 PM [facility] REPOSITORY Order Comment: How was Urine Obtained? [...] URINE SEEN Performed By: #### L400.0001 #### [facility] [address] [place], [address] BASIC METABOLIC Collected: 06/26/2018 Status: F Source: ERNST PROFILE (BMP) 6:05 AM [facility] REPOSITORY Order Comment: 102 TYPE CODE TESTS [...] GAP 8 Performed By: #### L500.2500 #### [facility] [address] [place], [place], [address] CBC W/DIFF, AUTOMATED Collected: 06/26/2018 Status: F Source: SHOCK 6:05 AM [facility] REPOSITORY Order Comment: 102 TYPE CODE TESTS [...] Lymph 1.18 Performed By: #### L100.0100 #### [facility] [address] [place], [address] CBC W/DIFF, AUTOMATED Collected: 06/23/2018 Status: F Source: SHOCK 6:00 AM [facility] REPOSITORY Order Comment: 102 TYPE CODE TESTS [...] Lymph 1.46 Performed By: #### L100.0100 #### [facility] [address] [place], [place], [address] BASIC METABOLIC Collected: 06/23/2018 Status: F Source: ERNST PROFILE ([facility]) 6:00 AM [facility] REPOSITORY Order Comment: 102 TYPE CODE TESTS [...] GAP 10 Performed By: #### L500.2500 #### [facility] [address] [place], [place], [address] BASIC METABOLIC Collected: 06/01/2018 Status: F Source: ERNST PROFILE (BMP) 5:00 AM [facility] REPOSITORY Order Comment: RM 102 TYPE CODE [...] GAP 8 Performed By: #### L500.2500 #### [facility] [place], [address] CBC W/DIFF, AUTOMATED Collected: 06/01/2018 Status: F Source: ERNST 5:00 AM [facility] REPOSITORY Order Comment: RM 102 TYPE CODE [...] Lymph 1.37 Performed By: #### L100.0100 #### [facility] [address] [place], [place], [address] BASIC METABOLIC Collected: 05/26/2018 Status: F Source: SHOCK PROFILE ([facility]) 6:00 AM [facility] REPOSITORY TYPE CODE TESTS RESULT OUT [...] GAP 7 Performed By: #### L500.2500 #### [facility] [address] [place], [address] CBC W/DIFF, AUTOMATED Collected: 05/26/2018 Status: F Source: SHOCK 6:00 AM [facility] REPOSITORY TYPE CODE TESTS RESULT OUT [...] Lymph 1.69 Performed By: #### L100.0100 #### [facility] [address] [place], [address] CBC W/DIFF, AUTOMATED Collected: 05/04/2018 Status: F Source: ERNST 5:00 AM [facility] REPOSITORY Order Comment: ROOM 102 TYPE CODE [...] Lymph 1.47 Performed By: #### L100.0100 #### [facility] [address] [place] [place], [address] BASIC METABOLIC Collected: 05/04/2018 Status: F Source: ERNST PROFILE (BMP) 5:00 AM [facility] REPOSITORY Order Comment: ROOM 102 TYPE CODE [...] GAP 4 Performed By: #### L500.2500 #### [facility] [address] [place], [place], [address] CBC W/DIFF, AUTOMATED Collected: 04/28/2018 Status: F Source: ERNST 6:55 AM [facility] REPOSITORY TYPE CODE TESTS RESULT OUT [...] Lymph 1.45 Performed By: #### L100.0100 #### [facility] [address] [place], [address] BASIC METABOLIC Collected: 04/28/2018 Status: F Source: SHOCK PROFILE ([facility]) 6:55 AM [facility] REPOSITORY Order Comment: RM 102 TYPE CODE [...] GAP 8 Performed By: #### L500.2500 #### [facility] [address] [place], [place], [address] CBC W/DIFF, AUTOMATED Collected: 04/06/2018 Status: F Source: ERNST 4:43 AM [facility] REPOSITORY Order Comment: ROOM 102 TYPE CODE [...] Lymph 1.73 Performed By: #### L100.0100 #### [facility] [address] [place], [address] BASIC METABOLIC Collected: 04/06/2018 Status: F Source: SHOCK PROFILE ([facility]) 4:43 AM [facility] REPOSITORY Order Comment: ROOM 102 TYPE CODE [...] GAP 7 Performed By: #### L500.2500 #### [facility] [address] [facility] [place], [place], [address] BASIC METABOLIC Collected: 03/31/2018 Status: F Source: ERNST PROFILE (BMP) 6:15 AM [facility] REPOSITORY Order Comment: ROOM 102 TYPE CODE [...] GAP 10 Performed By: #### L500.2500 #### [facility] [address] [place], [address] CBC W/DIFF, AUTOMATED Collected: 03/31/2018 Status: F Source: ERNST 6:15 AM [facility] REPOSITORY Order Comment: ROOM 102 TYPE CODE [...] Lymph 1.69 Performed By: #### L100.0100 #### [facility] [address] [facility] [place], [address] LIPID PROFILE Collected: 03/13/2018 Status: F Source: SHOCK 5:25 AM [facility] REPOSITORY Order Comment: 102 TYPE CODE TESTS [...] VLDL 8 Performed By: #### L500.4100 #### [facility] [place], [address] COMPREHENSIVE METABOLIC Collected: 03/12/2018 Status: F Source: ERNST VASQUEZ 9:25 AM [facility] REPOSITORY Order Comment: 102 TYPE CODE TESTS [...] GAP 8 Performed By: #### L500.4050 #### [facility] [address] [place], [address] CBC W/DIFF, AUTOMATED Collected: 03/12/2018 Status: F Source: ERNST 9:25 AM [facility] REPOSITORY Order Comment: 102 TYPE CODE TESTS [...] Lymph 1.26 Performed By: #### L100.0100 #### [facility] [address] [place], [address] VITAMIN D,25 HYDROXY Collected: 03/12/2018 Status: F Source: ERNST 9:25 AM [facility] REPOSITORY Order Comment: 102 TYPE CODE TESTS RESULT OUT OF RANGE REFERENCE UNITS LAB L506.1000 29.95-100.01 ng/mL Normal Vitamin D 40.8 25-OH Result Comment: Vitamin D 25(OH) Status Range Deficiency <20 ng/mL (50nmol/L) Insuffciency 20 - 30 ng/mL (50 - 75 nmol/L) Sufficiency 30 - 100 ng/mL (75 - 250 nmol/L) Toxicity >100 ng/mL (>250 nmol/L) Performed By: #### L506.1000 #### [facility] [address] [place], [address] ALLERGIES ALLERGIES No Allergies Records FoundENCOUNTERS ENCOUNTERS ADMIT/DISCHARGE ACCOUNT ADMITTING ENCOUNTER LOCATION SOURCE NUMBER CLASS 09/02/2018 [id number] Ambulatory [place] 3 [facility] ing:OLS.AVEB Repository 2018 [id number] Ambulatory [place] 6 [facility] ing:OLS.AVEB Repository 08/12/2018 [id number] Ambulatory [place] 5 [facility] ing:OLS.AVEB Repository 07/27/2018 [id number] Ambulatory [place] 2 [facility] Hospital ing:OLS.AVEB Repository 07/21/2018 [id number] Ambulatory [place] 7 [facility] ing:OLS.AVEB Repository 07/07/2018 [id number] Ambulatory [place] 8 [facility] ing:OLS.AVEB Repository 07/06/2018 [id number] Ambulatory Building:[facility] Repository 06/26/2018 [id number] Ambulatory [place] 5 [facility] ing:OLS.AVEB Repository 06/23/2018 [id number] Ambulatory [place] 8 [facility] ing:OLS.AVEB Repository 06/01/2018 [id number] Ambulatory [place] 6 [facility] Hospital ing:OLS.AVEB Repository 05/26/2018 [id number] Ambulatory [place] 4 [facility] Hospital ing:OLS.AVEB Repository 05/04/2018 [id number] Ambulatory [place] 3 [facility] Hospital ing:OLS.AVEB Repository 04/28/2018 [id number] Ambulatory [place] 5 [facility] ing:OLS.AVEB Repository 04/06/2018 [id number] Ambulatory [place] 1 [facility] ing:OLS.AVEB Repository 03/31/2018 [id number] Ambulatory [place] 9 [facility] ing:OLS.AVEB Repository 03/13/2018 [id number] Ambulatory [place] 7 [facility] ing:OLS.AVEB Repository 03/12/2018 [id number] Ambulatory [place] 9 [facility] ing:OLS.AVEB Repository PAYERS PAYERS ENCOUNTER GUARANTOR PAYER SUBSCRIBER SOURCE 09/02/2018 Nestor W Primary NOT GIVENUNK [place] [id number] [place] Insurance:SELF PAY [facility] Number: Effective [place], [place] Date:2018-09-02 25878Qtf: () 2018 Nestor W Primary NOT GIVENUNK [place] [id number] [place] Insurance:SELF PAY [facility] Number: Effective Repository [place], [place] Date:2018 [address]Hrm: () 08/12/2018 Nestor W Primary Nestor W [place] [id number] [place] Insurance:[facility] BoneDOB: [facility] COMP *NOT [id number] Memorial Hospital CONTRACTED*Policy [place], [place] Number: [id number]: (245) [id number] [phone] () Date:0669-37-03[address] [address]CF: 08/12/2018 Secondary NOT GIVENUNK [place] Insurance:SELF PAY Community [facility] Number: Effective Repository Date:2018-08-12 07/27/2018 Nestor Mckeon Primary Nestor Mckeon [place] [id number] [place] Insurance:AAR MCR BoneDOB: Community [place] COMP *NOT [id number] Memorial Hospital CONTRACTED*Policy Repository [place], [place] Number: [id number]: 330 [id number] () Date:2796-48-13KV [address] [address]LW: 07/27/2018 Secondary NOT GIVENUNK [place] Insurance:SELF PAY [facility] Number: Effective Repository Date:2018-07-27 07/21/2018 Nestor Mckeon Primary Nestor Mckeon [place] [id number] [place] [facility] BoneDOB: Community [place] COMP *NOT [id number] Memorial Hospital CONTRACTED*Policy Repository [place], [place] Number: [id number]: 330 [id number] () Date:4432-19-75GY [address] [address]FV: 07/21/2018 Secondary NOT GIVENUNK [place] Insurance:SELF PAY [facility] Number: Effective Repository Date:2018-07-21 07/07/2018 Nestor Mckeon Primary Nestor Mckeon [place] [id number] [place] Insurance:[facility] BoneDOB: Community [place] COMP *NOT [id number] Memorial Hospital CONTRACTED*Policy Repository [place], [place] Number: [address]Mmb: 330 [id number] [phone] () Date:6525-38-38IX [address] [address]ZM: 07/07/2018 Secondary NOT GIVENUNK [place] Insurance:SELF PAY [facility] Number: Effective Repository Date:2018-07-07 07/06/2018 Nestor W Primary Nestor Mckeon OHIP Practices BoneDOB: Insurance:MedicarePol BoneDOB: Repository icy Number: [id number] [place] [id number] 7 [place], [place] Date:Plan Name:PHOTOGRAPH ENLARGERRAMONA [place] [address]Umw: (835) [address], [address]: [place] [address]SI: (HP) (HP) [phone] (WP) 07/06/2018 Secondary Nestor W OHIP Practices Insurance:[place] of BoneDOB: [facility] Number: [id number] 7 [facility] Date:2559-21-79[place], [place] Name:[place] [address]Omp: Kw[place] ~(7 [id number]: [phone] ([phone] 06/26/2018 Nestor W Primary Nestor W [place] [id number] [place] Insurance:[facility] BoneDOB: [facility] [place] COMP *NOT [id number] Memorial Hospital CONTRACTED*Policy Repository [place], [place] Number: [address]Yrj: 330 [id number] [phone] () Date:6974-04-10EE [address] [place] [address]BW: 06/26/2018 Secondary NOT GIVENUNK [place] Insurance:SELF PAY [facility] Number: Effective Repository Date:2018-06-26 06/23/2018 Nestor W Primary Nestor W [place] [id number] [place] Insurance:[facility] BoneDOB: [facility] [place]AM[place]OCKC/[place] COMP *NOT [id number] Memorial Hospital CONTRACTED*Policy Repository [place], [place] Number: [address]Lgp: 330 [id number] (HP) Date:2915-30-83PE [address] [place] [address]WE: 06/23/2018 Secondary NOT GIVENUNK [place] Insurance:SELF PAY Community [facility] Number: Effective Repository Date:2018-06-23 06/01/2018 Nestor Mckeon Primary Nestor Mckeon [place] [id number] [place] Insurance:AAR MCR BoneDOB: Community [place] COMP *NOT [id number] Memorial Hospital CONTRACTED*Policy Repository [place], [place] Number: [address]Eta: 330 [id number] () Date:4766-90-09SE [address] [address]EH: 06/01/2018 Secondary NOT GIVENUNK [place] Insurance:SELF PAY Community [facility] Number: Effective Repository Date:2018-06-01 05/26/2018 Nestor Mckeon Primary Nestor Mckeon [place] [id number] [place] Insurance:[facility] BoneDOB: Community [place] COMP *NOT [id number] Memorial Hospital CONTRACTED*Policy Repository [place], [place] Number: [id number]: 330 [id number] [phone] () Date:4557-95-57CI [address] [address]BN: 05/26/2018 Secondary NOT GIVENUNK [place] Insurance:SELF PAY Community [facility] Number: Effective Repository Date:2018-05-26 05/04/2018 Nestor Mckeon Primary Nestor Mckeon [place] [id number] [place] Insurance:[facility] BoneDOB: Community [place] COMP *NOT [id number] Memorial Hospital CONTRACTED*Policy Repository [place], [place] Number: [address]Tnx: 330 [id number] [phone] () Date:2788-76-90RP [address] [address]XT: 05/04/2018 Secondary NOT GIVENUNK [place] Insurance:SELF PAY Community [facility] Number: Effective Repository Date:2018-05-04 04/28/2018 Nestor Mckeon Primary Nestor Mckeon [place] [id number] [place] Insurance:AAR MCR BoneDOB: Community [place]OCKC/[place] MAR[place] COMP *NOT [id number] Memorial Hospital CONTRACTED*Policy Repository [place], [place] Number: [address]Ogf: 330 [id number] [phone] () Date:5441-04-27ED [address] [address]GH: 04/28/2018 Secondary NOT GIVENUNK [place] Insurance:SELF PAY Community [facility] Number: Effective Repository Date:2018-04-28 04/06/2018 Nestor W Primary Nestor W [place] [id number] [place] Insurance:[employer] MCR BoneDOB: Community [place]C/[place] COMP *NOT [id number] Memorial Hospital CONTRACTED*Policy Repository [place], [place] Number: [id number]: 330 [id number] 63 () Date:4463-08-78FD [address] [address]HA: 04/06/2018 Secondary NOT GIVENUNK [place] Insurance:SELF PAY Community [facility] Number: Effective Repository Date:2018-04-06 03/31/2018 Nestor W Primary Nestor W [place] [id number] [place] Insurance:AAR MCR BoneDOB: Community [place]C/[place] COMP *NOT [id number] Memorial Hospital CONTRACTED*Policy Repository [place], [place] Number: [address]Aza: 330 [id number] 63 () Date:0384-26-40EB [address] [address]DE: 03/31/2018 Secondary NOT GIVENUNK [place] Insurance:SELF PAY [facility] Number: Effective Repository Date:2018-03-31 03/13/2018 Nestor W Primary Nestor W [place] [id number] [place] Insurance:AARP MCR BoneDOB: Community [place]C/[place] MARÍA COMP *NOT [id number] Memorial Hospital CONTRACTED*Policy Repository [place], [place] Number: [address]Xhw: 330 [id number] [phone] () Date:3520-45-02CQ [address] [address]UG: 03/13/2018 Secondary NOT GIVENUNK [place] Insurance:SELF PAY [facility] Number: Effective Repository Date:2018-03-13 03/12/2018 Nestor W Primary Nestor W [place] [id number] [place] Insurance:[facility] BoneDOB: Community HAM[place]OCKC/[place] MARÍA COMP *NOT [id number] Memorial Hospital CONTRACTED*Policy Repository [place], [place] Number: [address]Aug: (056) [id number] [phone] () Date:1096-14-53[address] [address] [address]SK: 03/12/2018 Secondary NOT GIVENUNK [place] Insurance:SELF PAY [facility] Number: Effective Repository Date:2018-03-12
== END ==
LOC: OLS.AVEB 04:00
PROVIDERS: Visit Provider Family Medicine
DX: N18.9 Chronic kidney disease, unspecified (principal)
CPT/HCPCS: 36415; 80069; 83970; 85025

== ENCOUNTER → 2018-08-12 04:30 | Outpatient (REF) | payer MEDICARE, MEDICAID, SELFPAY ==
[2018-08-12 07:40] LABS: Cholesterol 103 mg/dL (200); High Density Lipoprotein 49 mg/dL; Triglycerides 86 mg/dL; Very Low Density Lipoprotein 17 mg/dL (5-40)
== END ==
LOC: OLS.AVEB 04:30
PROVIDERS: Referring Provider Family Medicine; Visit Provider Family Medicine
DX: E78.5 Hyperlipidemia, unspecified (principal)
CPT/HCPCS: 36415; 80061

== ENCOUNTER → 2018-08-24 04:00 | Outpatient (REF) | payer MEDICARE, MEDICAID, SELFPAY ==
[2018-08-24 07:21] LABS: Absolute Neutrophil Count 4.8 X10^3/uL (2.0-7.7); Basophil# 0.02 X10^3/uL; Basophil% 0.3 % (0-1); Eosinophil# 0.23 X10^3/uL; Eosinophils% 3.3 % (0-5); Hematocrit 31.7 % (40-54); Hemoglobin 10.3 g/dl (13.0-16.5); Lymphocyte % 18.7 % (19-41); Mean Corp Hgb Conc 32.5 g/gl (32-36); Mean Corpuscular Hgb 29.9 pg (27.0-32.0); Mean Corpuscular Volume 91.9 fL (80-94); Mean Platelet Vol. 10.9 fl (6.2-12.0); Monocyte# 0.59 X10^3/uL; Monocyte% 8.5 % (0-10); Neutrophil # 4.79 X10^3/uL (2.7-7.7); Neutrophil % 69.1 % (47-70); Platelet Count 133 K/mm3 (150-450); RBC Distribution Width CV 15.4 % (11.6-14.6); RBC Distribution Width SD 50.3 fl (35.1-43.9); Red Blood Count 3.45 M/mm3 (4.6-6.2); White Blood Count 6.9 K/mm3 (4.4-11.0)
[2018-08-24 07:24] LABS: POSITIVE COUNT NO; POSITIVE DIFFERENTIAL NO; POSITIVE MORPHOLOGY NO
[2018-08-24 07:30] LABS: Anion Gap 7 (5-15); BUN 32 mg/dL (7-18); BUN/Creat Ratio 16.9 RATIO (10-20); Calcium,Total 8.5 mg/dL (8.5-10.1); Chloride 102 mmol/L (98-107); Creatinine, Serum 1.89 mg/dL (0.70-1.30); EST Glomerular Filtration Rate 37 mL/min (>60); Est Glom Filt Rate - Afr Amer 44 mL/min (>60); Glucose 71 mg/dL (74-106); Sodium Level 138 mmol/L (136-145)
== END ==
LOC: OLS.AVEB 04:00
PROVIDERS: Visit Provider Family Medicine
DX: I10 Essential (primary) hypertension (principal)
CPT/HCPCS: 36415; 80048; 85025

== ENCOUNTER → 2018-09-02 06:45 | Outpatient (REF) | payer MEDICARE, MEDICAID, SELFPAY ==
[2018-09-02 09:08] LABS: Hematocrit 34.5 % (40-54); Hemoglobin 11.7 g/dl (13.0-16.5); Mean Corp Hgb Conc 33.9 g/gl (32-36); Mean Corpuscular Hgb 30.4 pg (27.0-32.0); Mean Corpuscular Volume 89.6 fL (80-94); Mean Platelet Vol. 10.7 fl (6.2-12.0); Platelet Count 134 K/mm3 (150-450); RBC Distribution Width CV 15.4 % (11.6-14.6); RBC Distribution Width SD 50.9 fl (35.1-43.9); Red Blood Count 3.85 M/mm3 (4.6-6.2); White Blood Count 7.2 K/mm3 (4.4-11.0)
[2018-09-02 09:13] LABS: Scan Indicated on CBC? Y/N NO
[2018-09-02 09:24] LABS: Anion Gap 11 (5-15); BUN 41 mg/dL (7-18); BUN/Creat Ratio 20.8 RATIO (10-20); Calcium,Total 8.6 mg/dL (8.5-10.1); Chloride 103 mmol/L (98-107); Creatinine, Serum 1.97 mg/dL (0.70-1.30); EST Glomerular Filtration Rate 35 mL/min (>60); Est Glom Filt Rate - Afr Amer 42 mL/min (>60); Glucose 102 mg/dL (74-106); Potassium 3.6 mmol/L (3.5-5.1); Sodium Level 139 mmol/L (136-145)
--- OUTSIDE RECORDS SUMMARY | 2018-11-04 03:30 | XMS RPT_ITS ---
:1935 Author Organization [place] Support Name Relationship Address Phone María Cortez Unavailable [address] + [place] [address] R Unavailable Unavailable Unavailable Bone, María Unavailable [address] + [place] [address] R Unavailable Unavailable Unavailable Bone, María Unavailable [address] + [place] [address] R Unavailable Unavailable Unavailable Bone, María Unavailable [address] + [place] [address] R Unavailable Unavailable Unavailable Bone, María Unavailable [address] + [place] [address] R Unavailable Unavailable Unavailable Bone, María Unavailable [address] + [place] [address] R Unavailable Unavailable Unavailable Bone, María Unavailable [address] + [place] [address] R Unavailable Unavailable Unavailable Bone, María Unavailable [address] + [place] [address] R Unavailable Unavailable Unavailable Bone, María Unavailable [address] + [place] [address] R Unavailable Unavailable Unavailable Bone, María Unavailable [address] + [place] [address] R Unavailable Unavailable Unavailable Bone, María Unavailable [address] + [place] [address] R Unavailable Unavailable Unavailable Bone, María Unavailable [address] + [place] [address] R Unavailable Unavailable Unavailable Bone, María Unavailable [address] + [place] [address] R Unavailable Unavailable Unavailable Bone, María Unavailable [address] + [place] [address] R Unavailable Unavailable Unavailable Bone, María Unavailable [address] + [place] [address] R Unavailable Unavailable Unavailable Bone, María Unavailable [address] + [place] [address] R Unavailable Unavailable Unavailable Care Team Providers [...] 08/28/2018 Unknown E78.5 - BlackDavi estes Active [place] Hyperlipidemia, Community unspecified / Hospital E78.5(ICD-10) Repository 08/17/2018 Unknown N18.9 - Chronic Black, Davi Active [place] kidney disease, Community unspecified / Hospital N18.9(ICD-10) Repository 08/05/2018 Unknown M48.46XA - Fatigue Black, Davi Active [place] fracture of Community vertebra, lumbar Hospital region, initial Repository encounter for fracture / M48.46XA(ICD-10) 08/01/2018 Unknown N39.0 - Urinary Black, Davi Active [place] tract infection, Community site not specified Hospital / N39.0(ICD-10) Repository 08/01/2018 Unknown S32.038A - Other Black, Davi Active [place] fracture of third Community lumbar vertebra, Hospital initial encounter Repository for closed fracture / S32.038A(ICD-10) 08/01/2018 Unknown I10 - Essential Black, Davi Active [place] (primary) Community hypertension / Hospital I10(ICD-10) Repository 08/01/2018 Unknown D69.6 - Black, Davi Active [place] Thrombocytopenia, Community unspecified / Hospital D69.6(ICD-10) Repository 08/01/2018 Unknown 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 - Chronic Davi Black Active [place] kidney disease, [facility] stage 4 (severe) / Hospital N18.4(ICD-10) Repository 08/01/2018 Unknown D64.9 - Anemia, Davi Black Active [place] unspecified / Community D64.9(ICD-10) Hospital Repository PROCEDURES PROCEDURES No Procedure Records FoundRESULTS RESULTS CBC-COMPLETE BLOOD CNT Collected: 09/02/2018 Status: F Source: ERNST NO DIFF 6:45 AM [facility] REPOSITORY TYPE CODE TESTS RESULT OUT OF [...] MPV 10.7 Performed By: #### L100.0500 #### [facility] [address] [place], [place] [address], [address] BASIC METABOLIC Collected: 09/02/2018 Status: F Source: ERNST PROFILE (BMP) 6:45 AM [facility] REPOSITORY TYPE CODE TESTS RESULT OUT OF [...] GAP 11 Performed By: #### L500.2500 #### [facility] [address] [place], [place], [address] CBC W/DIFF, AUTOMATED Collected: 2018 Status: F Source: ERNST 4:45 AM [facility] REPOSITORY Order Comment: ROOM 102 TYPE CODE [...] L100.0100 #### [facility] [address] [place], [address] BASIC METABOLIC Collected: 2018 Status: F Source: HORSE SHOE PROFILE (BMP) 4:45 AM [facility] REPOSITORY Order Comment: ROOM 102 TYPE CODE [...] L500.2500 #### [facility] [address] [place], [place], [address] LIPID PROFILE Collected: 08/12/2018 Status: F Source: HORSE SHOE 5:30 AM [facility] REPOSITORY Order Comment: 102 TYPE CODE TESTS [...] L500.4100 #### [facility] [address] [facility] [place], [address] CBC W/DIFF, AUTOMATED Collected: 07/27/2018 Status: F Source: ERNST 8:30 AM [facility] REPOSITORY TYPE CODE TESTS RESULT OUT OF [...] L100.0100 #### [facility] [address] [place], [address] RENAL PROFILE Collected: 07/27/2018 Status: F Source: HORSE SHOE 8:30 AM [facility] REPOSITORY TYPE CODE TESTS RESULT OUT OF [...] L500.3600 #### [facility] [address] [place], [address] PTHIN Collected: 07/27/2018 Status: F Source: HORSE SHOE 8:30 AM [facility] REPOSITORY TYPE CODE TESTS RESULT OUT OF RANGE REFERENCE UNITS LAB L509.1000 18.4-80.1 pg/mL Normal PTHIN 48.3 Performed By: #### L509.1000 #### [facility] [address] [place], [address] CBC W/DIFF, AUTOMATED Collected: 07/21/2018 Status: F Source: HORSE SHOE 6:30 AM [facility] REPOSITORY Order Comment: 102 TYPE CODE TESTS [...] L100.0100 #### [facility] [address] [place], [address] BASIC METABOLIC Collected: 07/21/2018 Status: F Source: HORSE SHOE PROFILE (BMP) 6:30 AM [facility] REPOSITORY Order Comment: 102 TYPE CODE TESTS [...] L500.2500 #### [facility] [address] [place], [place], [address] URINALYSIS, COMPLETE Collected: 07/07/2018 Status: F Source: ERNST 1:10 PM [facility] REPOSITORY Order Comment: How was Urine Obtained? [...] L400.0001 #### [facility] [address] [place], [address] BASIC METABOLIC Collected: 06/26/2018 Status: F Source: ERNST PROFILE (BMP) 6:05 AM [facility] REPOSITORY Order Comment: 102 TYPE CODE TESTS [...] L500.2500 #### [facility] [address] [place], [place], [address] CBC W/DIFF, AUTOMATED Collected: 06/26/2018 Status: F Source: HORSE SHOE 6:05 AM [facility] REPOSITORY Order Comment: 102 TYPE CODE TESTS [...] L100.0100 #### [facility] [address] [place], [address] CBC W/DIFF, AUTOMATED Collected: 06/23/2018 Status: F Source: HORSE SHOE 6:00 AM [facility] REPOSITORY Order Comment: 102 TYPE CODE TESTS [...] L100.0100 #### [facility] [address] [place], [place], [id number] BASIC METABOLIC Collected: 06/23/2018 Status: F Source: ERNST PROFILE ([facility]) 6:00 AM [facility] REPOSITORY Order Comment: 102 TYPE CODE TESTS [...] L500.2500 #### [facility] [address] [place], [place], [address] BASIC METABOLIC Collected: 06/01/2018 Status: F Source: ERNST PROFILE (BMP) 5:00 AM [facility] REPOSITORY Order Comment: RM 102 TYPE CODE [...] L500.2500 #### [facility] [place], [address] CBC W/DIFF, AUTOMATED Collected: 06/01/2018 Status: F Source: ERNST 5:00 AM [facility] REPOSITORY Order Comment: RM 102 TYPE CODE [...] L100.0100 #### [facility] [address] [place], [place], [address] BASIC METABOLIC Collected: 05/26/2018 Status: F Source: HORSE SHOE PROFILE ([facility]) 6:00 AM [facility] REPOSITORY TYPE CODE TESTS RESULT OUT OF [...] L500.2500 #### [facility] [address] [place], [address] CBC W/DIFF, AUTOMATED Collected: 05/26/2018 Status: F Source: HORSE SHOE 6:00 AM [facility] REPOSITORY TYPE CODE TESTS RESULT OUT OF [...] L100.0100 #### [facility] [address] [place], [address] CBC W/DIFF, AUTOMATED Collected: 05/04/2018 Status: F Source: ERNST 5:00 AM [facility] REPOSITORY Order Comment: ROOM 102 TYPE CODE [...] L100.0100 #### [facility] [address] [place], [address] BASIC METABOLIC Collected: 05/04/2018 Status: F Source: ERNST PROFILE (BMP) 5:00 AM [facility] REPOSITORY Order Comment: ROOM 102 TYPE CODE [...] L500.2500 #### [facility] [address] [place], [place], [address] CBC W/DIFF, AUTOMATED Collected: 04/28/2018 Status: F Source: ERNST 6:55 AM [facility] REPOSITORY TYPE CODE TESTS RESULT OUT OF [...] L100.0100 #### [facility] [address] [place], [address] BASIC METABOLIC Collected: 04/28/2018 Status: F Source: HORSE SHOE PROFILE ([facility]) 6:55 AM [facility] REPOSITORY Order Comment: RM 102 TYPE CODE [...] L500.2500 #### [facility] [address] [place], [place], [address] CBC W/DIFF, AUTOMATED Collected: 04/06/2018 Status: F Source: ERNST 4:43 AM [facility] REPOSITORY Order Comment: ROOM 102 TYPE CODE [...] L100.0100 #### [facility] [address] [place], [address] BASIC METABOLIC Collected: 04/06/2018 Status: F Source: HORSE SHOE PROFILE ([facility]) 4:43 AM [facility] REPOSITORY Order Comment: ROOM 102 TYPE CODE [...] L500.2500 #### [facility] [address] [facility] [place], [place], [id number] BASIC METABOLIC Collected: 03/31/2018 Status: F Source: ERNST PROFILE (BMP) 6:15 AM [facility] REPOSITORY Order Comment: ROOM 102 TYPE CODE [...] L500.2500 #### [facility] [address] [place], [address] CBC W/DIFF, AUTOMATED Collected: 03/31/2018 Status: F Source: ERNST 6:15 AM [facility] REPOSITORY Order Comment: ROOM 102 TYPE CODE [...] L100.0100 #### [facility] [address] [facility] [place], [address] LIPID PROFILE Collected: 03/13/2018 Status: F Source: HORSE SHOE 5:25 AM [facility] REPOSITORY Order Comment: 102 TYPE CODE TESTS [...] L500.4100 #### [facility] [place], [address] COMPREHENSIVE METABOLIC Collected: 03/12/2018 Status: F Source: ERNST VASQUEZ 9:25 AM [facility] REPOSITORY Order Comment: 102 TYPE CODE TESTS [...] L500.4050 #### [facility] [address] [place], [address] CBC W/DIFF, AUTOMATED Collected: 03/12/2018 Status: F Source: ERNST 9:25 AM [facility] REPOSITORY Order Comment: 102 TYPE CODE TESTS [...] L100.0100 #### [facility] [address] [place], [address] VITAMIN D,25 HYDROXY Collected: 03/12/2018 Status: F Source: ERNST 9:25 AM [facility] REPOSITORY Order Comment: 102 TYPE CODE TESTS [...] L506.1000 #### [facility] [address] [place], [address] ALLERGIES ALLERGIES No Allergies Records FoundENCOUNTERS ENCOUNTERS ADMIT/DISCHARGE ACCOUNT ADMITTING ENCOUNTER LOCATION SOURCE NUMBER CLASS 09/02/2018 [id number] Ambulatory [place] 3 [facility] ing:OLS.AVEB Repository 2018 [id number] Ambulatory [place] 6 [facility] ing:OLS.AVEB Repository 08/12/2018 [id number] Amb[place] 5 [facility] ing:OLS.AVEB Repository 07/27/2018 [id number] Ambulatory [place] 2 [facility] Hospital ing:OLS.AVEB Repository 07/21/2018 [id number] Ambulatory [place] 7 [facility] ing:OLS.AVEB Repository 07/07/2018 [id number] Ambulatory [place] 8 [facility] ing:OLS.AVEB Repository 07/06/2018 [id number] Ambulatory Building:[facility] Repository 06/26/2018 [id number] Ambulatory [place] 5 [facility] ing:OLS.AVEB Repository 06/23/2018 [id number] Ambulatory [place] 8 [facility] ing:OLS.AVEB Repository 06/01/2018 [id number] Ambulatory [place] 6 [facility] Hospital ing:OLS.AVEB Repository 05/26/2018 [id number] Ambulatory [place] 4 [facility] Hospital ing:OLS.AVEB Repository 05/04/2018 [id number] Ambulatory [place] 3 [facility] Hospital ing:OLS.AVEB Repository 04/28/2018 [id number] Ambulatory [place] 5 [facility] ing:OLS.AVEB Repository 04/06/2018 [id number] Ambulatory [place] 1 [facility] ing:OLS.AVEB Repository 03/31/2018 [id number] Ambulatory [place] 9 [facility] ing:OLS.AVEB Repository 03/13/2018 [id number] Ambulatory [place] 7 [facility] ing:OLS.AVEB Repository 03/12/2018 [id number] Ambulatory [place] 9 [facility] ing:OLS.AVEB Repository PAYERS PAYERS ENCOUNTER GUARANTOR PAYER SUBSCRIBER SOURCE 09/02/2018 Nestor W Primary NOT GIVENUNK [place] [id number] [place] Insurance:SELF PAY [facility] Number: Effective [place], [place] Date:2018-09-02 [address]Biy: () 2018 Nestor W Primary NOT GIVENUNK [place] [id number] [place] Insurance:SELF PAY [facility] Number: Effective Repository [place], [place] Date:2018 [address]Slo: () 08/12/2018 Nestor W Primary Nestor W [place] [id number] [place] Insurance:[facility] BoneDOB: [facility] COMP *NOT [id number] City Hospital CONTRACTED*Policy [place], [place] Number: [id number]: [phone] [id number] () Date:5928-80-15NS[address] [address]XJ: 08/12/2018 Secondary NOT GIVENUNK [place] Insurance:SELF PAY Community [facility] Number: Effective Repository Date:2018-08-12 07/27/2018 Nestor Mckeon Primary Nestor Mckeon [place] [id number] [place] Insurance:AAR MCR BoneDOB: Community [facility] COMP *NOT [id number] City Hospital CONTRACTED*Policy Repository [place], [place] Number: [id number]: 330 [id number] [phone] () Date:6517-28-33YU [address] [address]PZ: 07/27/2018 Secondary NOT GIVENUNK [place] Insurance:SELF PAY [facility] Number: Effective Repository Date:2018-07-27 07/21/2018 Nestor Mckeon Primary Nestor Mckeon [place] [id number] [place] [facility] BoneDOB: Community [place] MAR[facility] COMP *NOT [id number] City Hospital CONTRACTED*Policy Repository [place], [place] Number: [id number]: 330 [id number] [phone] () Date:3255-02-71PS [address] [address]RT: 07/21/2018 Secondary NOT GIVENUNK [place] Insurance:SELF PAY [facility] Number: Effective Repository Date:2018-07-21 07/07/2018 Nestor Mckeon Primary Nestor Mckeon [place] [id number] [place] [facility] BoneDOB: Community [place] COMP *NOT [id number] City Hospital CONTRACTED*Policy Repository [place], [place] Number: [id number]: 330 [id number] [phone] () Date:3822-83-16BD [address] [address]SE: 07/07/2018 Secondary NOT GIVENUNK [place] Insurance:SELF PAY [facility] Number: Effective Repository Date:2018-07-07 07/06/2018 Nestor W Primary Nestor Mckeon [employer]ices BoneDOB: Insurance:MedicarePol BoneDOB: Repository icy Number: [id number] [place] [id number] 7 [place], [place] Date:Plan Name:INFORMATION DEVELOPERRAMONA Cooper [address]Uln: (844) [address], [address]: [place] [address]WJ: (HP) (HP) [phone] (WP) 07/06/2018 Secondary Nestor W [place]IP Practices Insurance:[place] of BoneDOB: Repository [facility] Number: [id number] 7 [facility] Date:9583-31-59[place], [place] Name:[place] [address]Yen: [place] ~(4 [id number]: [phone]) [phone] (OY) [phone] 06/26/2018 Nestor W Primary Nestor W [place] [id number] [place] Insurance[facility] BoneDOB: [facility] HAMMOCKC/[place] MARÍA COMP *NOT [id number] City Hospital CONTRACTED*Policy Repository [place], [place] Number: [id number]: 330 [id number] () Date:3827-00-91KM [address] [place] [address]JJ: 06/26/2018 Secondary NOT GIVENUNK [place] Insurance:SELF PAY [facility] Number: Effective Repository Date:2018-06-26 06/23/2018 Enstor W Primary Nestor W [place] [id number] [place] Insurance:[facility] BoneDOB: [facility] HAMMOCKC/[place] MARÍA COMP *NOT [id number] City Hospital CONTRACTED*Policy Repository [place], [place] Number: [id number]: 330 [id number] [phone] (HP) Date:5199-90-65JK [address] [place] [address]FA: 06/23/2018 Secondary NOT GIVENUNK [place] Insurance:SELF PAY Community [facility] Number: Effective Repository Date:2018-06-23 06/01/2018 Nestor Mckeon Primary Nestor Mckeon [place] [id number] [place] Insurance:AAR MCR BoneDOB: Community [place] COMP *NOT [id number] City Hospital CONTRACTED*Policy Repository [place], [place] Number: [address]Wdo: 330 [id number] [phone] () Date:4993-82-27CU [address] [address]VN: 06/01/2018 Secondary NOT GIVENUNK [place] Insurance:SELF PAY Community [facility] Number: Effective Repository Date:2018-06-01 05/26/2018 Nestor Mckeon Primary Nestor Mckeon [place] [id number] [place] Insurance:[facility] BoneDOB: Community [place] COMP *NOT [id number] City Hospital CONTRACTED*Policy Repository [place], [place] Number: [address]Pfr: 330 [id number] [phone] () Date:1299-63-31GZ [address] [address]RT: 05/26/2018 Secondary NOT GIVENUNK [place] Insurance:SELF PAY Community [facility] Number: Effective Repository Date:2018-05-26 05/04/2018 Nestor Mckeon Primary Nestor Mckeon [place] [id number] [place] Insurance:[facility] BoneDOB: Community [place] COMP *NOT [id number] City Hospital CONTRACTED*Policy Repository [place], [place] Number: [address]Jwy: 330 [id number] [phone] () Date:5421-72-21CL [address] [address]JI: 05/04/2018 Secondary NOT GIVENUNK [place] Insurance:SELF PAY Community [facility] Number: Effective Repository Date:2018-05-04 04/28/2018 Nestor Mckeon Primary Nestor Mkceon [place] [id number] [place] Insurance:AAR MCR BoneDOB: Community [place]C/[place] COMP *NOT [id number] City Hospital CONTRACTED*Policy Repository [place], [place] Number: [address]Cah: 330 [id number] [phone] () Date:9461-50-45AQ [address] [address]GD: 04/28/2018 Secondary NOT GIVENUNK [place] Insurance:SELF PAY Community [facility] Number: Effective Repository Date:2018-04-28 04/06/2018 Nestor W Primary Nestor W [place] [id number] [place] Insurance:[employer] MCR BoneDOB: Community [place] COMP *NOT [id number] City Hospital CONTRACTED*Policy Repository [place], [place] Number: [address]Txz: 330 [id number] 63 () Date:3795-42-87TH [address] [address]XB: 04/06/2018 Secondary NOT GIVENUNK [place] Insurance:SELF PAY Community [facility] Number: Effective Repository Date:2018-04-06 03/31/2018 Nestor W Primary Nestor W [place] [id number] [place] Insurance:AAR MCR BoneDOB: Community [place] COMP *NOT [id number] City Hospital CONTRACTED*Policy Repository [place], [place] Number: [address]Arn: 330 [id number] 63 () Date:3156-62-69NB [address] [address]MX: 03/31/2018 Secondary NOT GIVENUNK [place] Insurance:SELF PAY [facility] Number: Effective Repository Date:2018-03-31 03/13/2018 Nestor W Primary Nestor W [place] [id number] [place] Insurance:AARP MCR BoneDOB: Community HAM[place]OCKC/[place] MARÍA COMP *NOT [id number] City Hospital CONTRACTED*Policy Repository [place], [place] Number: [id number]: 330 [id number] [phone] () Date:7923-55-42OF [address] [address]ZV: 03/13/2018 Secondary NOT GIVENUNK [place] Insurance:SELF PAY [facility] Number: Effective Repository Date:2018-03-13 03/12/2018 Nestor W Primary Nestor W [place] [id number] [place] Insurance:[facility] BoneDOB: Community HAM[place]OCKC/[place] MARÍA COMP *NOT [id number] City Hospital CONTRACTED*Policy Repository [place], [place] Number: [address]Hkp: [phone] [id number] [phone] () Date:8341-84-43XT [address] [address], [place] [address]KX: 03/12/2018 Secondary NOT GIVENUNK [place] Insurance:SELF PAY [facility] Number: Effective Repository Date:2018-03-12
== END ==
LOC: OLS.AVEB 06:45
PROVIDERS: Visit Provider Family Medicine
DX: I10 Essential (primary) hypertension (principal); E78.5 Hyperlipidemia, unspecified
CPT/HCPCS: 36415; 80048; 85027